=== PATIENT | female | born 1965 | race Caucasian/White ===

== ENCOUNTER 2017-01-14 08:47 | Observation (INO) | payer OTHER ==
[2017-01-14] MEDS ORDERED: Nitroglycerin TAB 0.4 MG* 0.4 MG TAB SL ONE (09:48)
[2017-01-14] MEDS ORDERED: Aspirin Low Dose CHEW TAB* 81 MG PO ONE (09:48)
[2017-01-14] MEDS ORDERED: NS 0.9% 1000 ML* 1,000 ML IV SCH (10:00)
[2017-01-14 10:29] LABS: Hematocrit 43 % (35-47); Hemoglobin 14.3 g/dl (12.0-16.0); Mean Corpuscular HGB Conc 34 g/dl (31-36); Mean Corpuscular Hemoglobin 29 pg (27-31); Mean Corpuscular Volume 88 fL (80-97); Mean Platelet Volume 8 um3 (7.4-10.4); Red Blood Count 4.87 10^6/ul (4.0-5.4); Red Cell Distribution Width 15 % (10.5-15); White Blood Count 6.5 10^3/ul (3.5-10.8)
--- NOTE | 2017-01-14 10:35 | RAD ---
INDICATION: Mild dyspnea COMPARISON: None. TECHNIQUE: Single AP portable view of the chest was obtained. FINDINGS: Image quality is compromised due to the relative inferiority of a portable chest x-ray. The heart and mediastinum exhibit normal size and contour. The lungs are grossly clear. There is no evidence of a large pleural effusion. Visualized bones are normal for the patient's age. IMPRESSION: No radiographic evidence for acute cardiopulmonary abnormality on this portable chest x-ray.
[2017-01-14 10:53] LABS: Albumin 4.3 g/dL (3.2-5.2); BUN/Creatinine Ratio 13.3 (8-20); C Reactive Protein 12.36 mg/L (< 5.00); Calcium 9.5 mg/dL (8.6-10.3); EGFR African American 71.6 (>60); EGFR Non-African American 55.7 (>60); Globulin 2.7 g/dL (2-4); Magnesium 2.1 mg/dL (1.9-2.7); Potassium 4.4 mmol/L (3.5-5.0); Total Bilirubin 0.6 mg/dL (0.2-1.0)
[2017-01-14 11:14] LABS: TSH (Thyroid Stimulating Horm) 1.16 mcIU/mL (0.34-5.60)
--- NOTE | 2017-01-14 12:34 | RAD ---
HISTORY: Upper abdominal pain COMPARISONS: CT dated December 06, 2006 TECHNIQUE: Multiple transverse and longitudinal ultrasound images were obtained of the right upper quadrant of the abdomen using grayscale and color Doppler imaging. FINDINGS: LIVER: The liver is diffusely echogenic and coarse in echotexture, with decreased acoustic transmission. The liver measures 23.5 cm in long axis.. There is normal hepatopedal flow of the portal vein on Doppler imaging. BILIARY TREE: There is no intrahepatic or extrahepatic biliary dilatation. The common duct measures 0.3 cm. GALLBLADDER: The gallbladder is well-visualized. There is no cholelithiasis, gallbladder wall thickening, pericholecystic fluid, or sonographic Cavanaugh sign. PANCREAS: The pancreas is obscured by overlying bowel gas. RIGHT KIDNEY: The right kidney is normal in shape, size, contour, and echogenicity. There is no hydronephrosis or nephrolithiasis. The right kidney measures 11.4 x 3.9 x 5.7 cm. AORTA AND IVC: The aorta and IVC are unremarkable. FLUID: There are no pleural effusions. There is no free fluid within the hepatorenal recess. OTHER FINDINGS: None. IMPRESSION: HEPATOMEGALY WITH FATTY INFILTRATION OF THE LIVER.
[2017-01-14] MEDS ORDERED: Dextrose 50% Syringe 50 ML* 25 GM/50 ML SYRINGE IV PUSH PRN (14:22)
[2017-01-14] MEDS ORDERED: Acetaminophen TAB* 325 MG PO PRN (14:26)
[2017-01-14 14:49] LABS: Urine Bacteria 1+ (Absent); Urine Bilirubin Negative (Negative); Urine Glucose 3+(>=500 mg/dL) (Negative); Urine Nitrite Negative (Negative)
[2017-01-14] MEDS ORDERED: Iodixanol* (CONTRAST) 320 MG/ML 100 ML SDV IV ONE (16:08)
--- NOTE | 2017-01-14 16:37 | ED ---
René Barragan Benjamin, scribed for Link Betancur MD on 01/14/17 at 1032 . HPI Chest Pain - HPI Summary HPI Summary: 51yo female c/o sudden onset of intermittent Sob since last week, also intermittent chest pressure since Saturday. Pt states her SOB and CP gets worse with activities, but also occurs at rest sometimes. Pain lasts about 10-15 minutes. Pt also reports epigastric discomfort, but says that is chronic. Pain gained 7lbs over a week. Pt is diabetic and has an enlarged liver. Pt had stress test and cardiac catheter done 2 yrs ago. - History of Current Complaint Chief Complaint: EDChestPainROMI Time Seen by Provider: 01/14/17 09:07 Hx Obtained From: Patient Hx Last Menstrual Period: menopause at age 42 Onset/Duration: Started Days Ago - 2 days ago, Still Present Timing: Intermittent, Lasting Minutes - 10-15 min Initial Severity: Moderate Current Severity: Mild Pain Intensity: 1 Pain Scale Used: 0-10 Numeric Chest Pain Location: Diffuse Chest Pain Radiates: Yes Chest Pain Radiates To:: Shoulder - shoulder blades Character: Pressure/Squeezing, Tightness Aggravating Factor(s): Exertion Alleviating Factor(s): Nothing Associated Signs and Symptoms: Positive: Shortness of Breath - Allergy/Home Medications Allergies/Adverse Reactions: Allergies Allergy/AdvReac Type Severity Reaction Status Date / Time Penicillins Allergy Intermediate Hives Verified 01/14/17 08:49 Home Medications: Home Medications Ergocalciferol [Vitamin D2] 4,000 unit PO DAILY 01/14/17 [History Confirmed ] Fenofibrate(NF) [Tricor(NF)] 145 mg PO DAILY 01/14/17 [History Confirmed ] Gabapentin TAB(NF) [Neurontin 600 mg TAB(NF)] 600 mg PO TID MDD 600 mg 01/14/17 [History Confirmed 01/14/17] Insulin GLARGINE(*) [Lantus(*)] 65 units SUBCUT BID 01/14/17 [History Confirmed 01/14/17] [id number] Ethyl Esters (NF) [Lovaza (NF)] 2 gm PO DAILY 01/14/17 [History Confirmed 01/14/17] Rosuvastatin (NF) [Crestor (NF)] 20 mg PO QPM 01/14/17 [History Confirmed ] PMH/Surg Hx/FS Hx/Imm Hx Endocrine/Hematology History: Reports: Hx Diabetes Cardiovascular History: Reports: Hx Hypertension GI History: Reports: Hx Ulcer - gerd - Surgical History Surgery Procedure, Year, and Place: internal cysts removed from abd. tubal, tonsillectomy. tumors from esophagus - last 06/2105 Infectious Disease History: No Infectious Disease History: Reports: Hx Shingles Denies: History Other Infectious Disease, Traveled Outside the [place] in Last 30 Days - Family History Known Family History: Positive: Cardiac Disease, Hypertension, Diabetes - Social History Alcohol Use: None Substance Use Type: Reports: None Smoking Status (MU): Heavy Every Day Tobacco Smoker Type: Cigarettes Amount Used/How Often: 1/2 ppd Review of Systems Constitutional: Negative Eyes: Negative ENT: Negative Positive: Chest Pain Positive: Shortness Of Breath Gastrointestinal: Negative Genitourinary: Negative Musculoskeletal: Negative Skin: Negative Neurological: Negative Psychological: Normal All Other Systems Reviewed And Are Negative: Yes Physical Exam Triage Information Reviewed: Yes Vital Signs On Initial Exam: Initial Vitals Temp Pulse Resp BP Pulse Ox 97.5 F 105 17 141/79 97 01/14/17 08:55 01/14/17 08:55 01/14/17 08:55 01/14/17 08:55 01/14/17 08:55 Vital Signs Reviewed: Yes Appearance: Positive: Well-Appearing, No Pain Distress, Well-Nourished Skin: Positive: Warm, Skin Color Reflects Adequate Perfusion, Dry Head/Face: Positive: Normal Head/Face Inspection Eyes: Positive: Normal ENT: Positive: Normal ENT inspection, Hearing grossly normal Neck: Positive: Supple, Nontender Respiratory/Lung Sounds: Positive: Clear to Auscultation, Breath Sounds Present Cardiovascular: Positive: RRR, Pulses are Symmetrical in both Upper and Lower Extremities Abdomen Description: Positive: Nontender, Soft Bowel Sounds: Positive: Present Musculoskeletal: Positive: Strength/ROM Intact Neurological: Positive: Sensory/Motor Intact, Alert, Oriented to Person Place, Time Psychiatric: Positive: Affect/Mood Appropriate Diagnostics - Vital Signs Vital Signs Temp Pulse Resp BP Pulse Ox 01/14/17 10:06 110 14 94 01/14/17 10:05 109/60 01/14/17 08:55 97.5 F 105 17 141/79 97 - Laboratory Lab Results: Lab Results 01/14/17 01/14/17 01/14/17 Range/Units 10:00 10:00 10:00 WBC (3.5-10.8) 10^3/ul RBC (4.0-5.4) 10^6/ul Hgb (12.0-16.0) g/dl Hct (35-47) % MCV (80-97) fL MCH (27-31) pg MCHC (31-36) g/dl RDW (10.5-15) % Plt Count (150-450) 10^3/ul MPV (7.4-10.4) um3 Neut % (Auto) (38-83) % Lymph % (Auto) (25-47) % [place] % (Auto) (1-9) % Eos % (Auto) (0-6) % Baso % (Auto) (0-2) % Absolute Neuts (auto) (1.5-7.7) 10^3/ul Absolute Lymphs (auto) (1.0-4.8) 10^3/ul Absolute Monos (auto) (0-0.8) 10^3/ul Absolute Eos (auto) (0-0.6) 10^3/ul Absolute Basos (auto) (0-0.2) 10^3/ul Absolute Nucleated RBC 10^3/ul Nucleated RBC % INR (Anticoag Therapy) 0.87 L (0.89-1.11) APTT 28.4 (26.0-36.3) seconds D-Dimer, Quantitative < 200 (Less Than 230) ng/mL Sodium 137 (133-145) mmol/L Potassium 4.4 (3.5-5.0) mmol/L Chloride 103 (101-111) mmol/L Carbon Dioxide 26 (22-32) mmol/L Anion Gap 8 (2-11) mmol/L BUN 14 (6-24) mg/dL Creatinine 1.05 H (0.51-0.95) mg/dL Est GFR ( Amer) 71.6 (>60) Est GFR (Non-Af Amer) 55.7 (>60) BUN/Creatinine Ratio 13.3 (8-20) Glucose 227 H (70-100) mg/dL Lactic Acid (0.5-2.0) mmol/L Calcium 9.5 (8.6-10.3) mg/dL Magnesium 2.1 (1.9-2.7) mg/dL Total Bilirubin 0.60 (0.2-1.0) mg/dL AST 97 H (13-39) U/L ALT 135 H (7-52) U/L Alkaline Phosphatase 115 H (34-104) U/L Total Creatine Kinase 109 (10-223) U/L CK-MB (CK-2) 1.4 (0.6-6.3) ng/mL Troponin I 0.00 (<0.04) ng/mL C-Reactive Protein 12.36 H (< 5.00) mg/L B-Natriuretic Peptide 15 ( - 100) pg/mL Total Protein 7.0 (6.4-8.9) g/dL Albumin 4.3 (3.2-5.2) g/dL Globulin 2.7 (2-4) g/dL Albumin/Globulin Ratio 1.6 (1-3) Lipase 30 (11.0-82.0) U/L TSH 1.16 (0.34-5.60) mcIU/mL Urine Color Urine Appearance Urine pH (5-9) Ur Specific [place] (1.010-1.030) Urine Protein (Negative) Urine Ketones (Negative) Urine Blood (Negative) Urine Nitrate (Negative) Urine Bilirubin (Negative) Urine Urobilinogen (Negative) Ur Leukocyte Esterase (Negative) Urine WBC (Auto) (Absent) Urine RBC (Auto) (Absent) Ur Squamous Epith Cells (Absent) Urine Bacteria (Absent) Urine Glucose (Negative) 01/14/17 01/14/17 01/14/17 Range/Units 10:00 10:00 13:07 WBC 6.5 (3.5-10.8) 10^3/ul RBC 4.87 (4.0-5.4) 10^6/ul Hgb 14.3 (12.0-16.0) g/dl Hct 43 (35-47) % MCV 88 (80-97) fL MCH 29 (27-31) pg MCHC 34 (31-36) g/dl RDW 15 (10.5-15) % Plt Count 211 (150-450) 10^3/ul MPV 8 (7.4-10.4) um3 Neut % (Auto) 55.1 (38-83) % Lymph % (Auto) 33.5 (25-47) % [place] % (Auto) 7.8 (1-9) % Eos % (Auto) 2.6 (0-6) % Baso % (Auto) 1.0 (0-2) % Absolute Neuts (auto) 3.6 (1.5-7.7) 10^3/ul Absolute Lymphs (auto) 2.2 (1.0-4.8) 10^3/ul Absolute Monos (auto) 0.5 (0-0.8) 10^3/ul Absolute Eos (auto) 0.2 (0-0.6) 10^3/ul Absolute Basos (auto) 0.1 (0-0.2) 10^3/ul Absolute Nucleated RBC 0 10^3/ul Nucleated RBC % 0.1 INR (Anticoag Therapy) (0.89-1.11) APTT (26.0-36.3) seconds D-Dimer, Quantitative (Less Than 230) ng/mL Sodium (133-145) mmol/L Potassium (3.5-5.0) mmol/L Chloride (101-111) mmol/L Carbon Dioxide (22-32) mmol/L Anion Gap (2-11) mmol/L BUN (6-24) mg/dL Creatinine (0.51-0.95) mg/dL Est GFR ( Amer) (>60) Est GFR (Non-Af Amer) (>60) BUN/Creatinine Ratio (8-20) Glucose (70-100) mg/dL Lactic Acid 2.1 H* (0.5-2.0) mmol/L Calcium (8.6-10.3) mg/dL Magnesium (1.9-2.7) mg/dL Total Bilirubin (0.2-1.0) mg/dL AST (13-39) U/L ALT (7-52) U/L Alkaline Phosphatase (34-104) U/L Total Creatine Kinase (10-223) U/L CK-MB (CK-2) (0.6-6.3) ng/mL Troponin I (<0.04) ng/mL C-Reactive Protein (< 5.00) mg/L B-Natriuretic Peptide ( - 100) pg/mL Total Protein (6.4-8.9) g/dL Albumin (3.2-5.2) g/dL Globulin (2-4) g/dL Albumin/Globulin Ratio (1-3) Lipase (11.0-82.0) U/L TSH (0.34-5.60) mcIU/mL Urine Color Katharine Urine Appearance Cloudy Urine pH 6.0 (5-9) Ur Specific [place] 1.033 H (1.010-1.030) Urine Protein 1+(30 mg/dl) H (Negative) Urine Ketones Trace H (Negative) Urine Blood Negative (Negative) Urine Nitrate Negative (Negative) Urine Bilirubin Negative (Negative) Urine Urobilinogen Negative (Negative) Ur Leukocyte Esterase Negative (Negative) Urine WBC (Auto) Absent (Absent) Urine RBC (Auto) Absent (Absent) Ur Squamous Epith Cells Present H (Absent) Urine Bacteria 1+ H (Absent) Urine Glucose 3+(>=500 mg/dl) H (Negative) Result Diagrams: 01/14/17 10:00 01/14/17 10:00 Lab Statement: Any lab studies that have been ordered have been reviewed, and results considered in the medical decision making process. - Radiology CXR Xray Interpretation: No Acute Changes Radiology Interpretation Completed By: Radiologist - ED physician has reviewed this radiology report and agrees. - EKG 1017. Cardiac Rate: NL - 89bpm EKG Rhythm: Sinus Rhythm ST Segment: Normal Ectopy: None - Additional Comments Diagnostic Additional Comments: GALL BLADDER US IMPRESSION: HEPATOMEGALY WITH FATTY INFILTRATION OF THE LIVER. ED physician has reviewed this radiology report and agrees. Chest Pain Course/Dx - Course Course Of Treatment: Reviewed pts medication and allergy lists. High Blood pressure noted. ADMIT HOSPITALIST. NO CRITICAL CARE TIME - Diagnoses Provider Diagnoses: Chest pain, Dyspnea, Upper abdominal pain Discharge - Discharge Plan Condition: Stable Disposition: ADMITTED TO [facility] documentation as recorded by the René coleman Benjamin accurately reflects the service I personally performed and the decisions made by me, Link Betancur MD.
--- NOTE | 2017-01-14 17:10 | RAD ---
INDICATION: Abdominal pain and distention COMPARISON: CT December 06, 2006 TECHNIQUE: Axial source images were obtained from the hemidiaphragms to the symphysis pubis following administration of oral and intravenous contrast. 100 mL Visipaque 320 was utilized. Coronal and sagittal reconstructed images were acquired. Lung bases: The lung bases are clear. Liver: The liver is enlarged with findings of hepatic steatosis. There are no masses. There is no ductal dilatation. Gallbladder: There are no calcified gallstones. There is no evidence of wall thickening or pericholecystic fluid. Spleen: The spleen is normal in size. There are no masses. Pancreas: There is no focal pancreatic mass or ductal dilatation. Adrenal glands: There is no evidence of adrenal mass. Kidneys: The kidneys are normal in size and position. There are prompt nephrograms and there is prompt excretion bilaterally. There are no renal parenchymal masses. There is no evidence of nephrolithiasis. Adenopathy: There is no evidence of adenopathy by size criteria. Fluid collections: There are no free or localized fluid collections. Vessels:There are no significant atherosclerotic changes involving the aorta. There is no focal aneurysm. The iliac vessels are normal in caliber. The IVC appears normal. GI tract: There are no acute CT bowel findings. There is no obstruction. The stomach and small bowel appear normal. The lower GI tract is normal. The cecum, ileocecal valve, and terminal ileum appear normal. The appendix is visualized and appear normal. Pelvic organs: The uterus and adnexa appear normal Bladder: There are no bladder masses. Abdominal and pelvic soft tissues: The extraperitoneal abdominal and pelvic soft tissues appear normal.. Osseous structures: There are no acute osseous findings. Other: None IMPRESSION: HEPATOMEGALY WITH HEPATIC STEATOSIS, OTHERWISE NEGATIVE.
[2017-01-14] MEDS: Insulin LISPRO* 1 UNITS UNIT SUBCUT SCH (17:45)
[2017-01-14] MEDS: Gabapentin CAP(*) 300 MG PO SCH (20:45)
[2017-01-14] MEDS: Insulin GLARGINE(*) 1 UNITS UNIT SUBCUT SCH (20:47)
[2017-01-14] MEDS ORDERED: DULoxetine DR CAP* 60 MG CAP.DR PO SCH (21:00)
[2017-01-14] MEDS: Heparin VIAL(*) 5000 UNITS/ML VIAL (FIVE THOUSAND) SUBCUT SCH (22:20)
--- NOTE | 2017-01-14 22:38 | HP ---
CC: Dr. Robles* [facility] MEDICINE HISTORY AND PHYSICAL: DATE OF ADMISSION: 01/14/17 PRIMARY CARE PHYSICIAN: Dr. Robles. ATTENDING PHYSICIAN: Cleve Bernabe MD* (dictation provided by Eileen Otero NP). CHIEF COMPLAINT: Shortness of breath, abdominal distention, and epigastric discomfort. HISTORY OF PRESENT ILLNESS: Ms. 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 She presents to the hospital today with concern for worsening dyspnea on exertion. She states that her symptoms began approximately 2 weeks ago. She began to notice that she was more short of breath with walking upstairs and exerting herself. However, over this 2-week period, her activity level has diminished and she continues to have worsening shortness of breath. Now she states that she is short of breath with simply walking across the room or even rolling over in bed. She also reports feeling fullness and distention in her abdomen with some discomfort in her epigastric area. She states she has been eating and drinking normally. She has had no diarrhea. She has had no constipation. She feels that perhaps she has gained about 7 pounds over the past week and has actually had to go buy a new pair of pants because of this. Today, she was driving her car and was short of breath just with that activity and therefore ,decided to come to the emergency room for evaluation. Of note, Ms. Ocampo states that she has had 2 large cystic tumors removed in the past from her abdomen, one cyst was attached to her lower spine and was described as the size of a football. She also had another cyst removed from her bowel. The first one was done at [facility] and the second was done at [facility] in [place]. She states that her symptoms today seem similar to symptoms that she had, which led to discovery of these cysts previously. In the emergency room, Ms. Ocampo had a troponin which was 0. She had a lactic acid, which was 2.1. She had an elevated AST of 97, ALT 135, alk phos 115. Her CRP is 12.36. Her EKG showed no evidence of ischemia. Her chest x- ray shows no evidence of infiltrate. Her D-dimer is less than 200. PAST MEDICAL HISTORY: 1. Obstructive sleep apnea, on CPAP. 2. Depression. 3. Diabetes, insulin dependent. 4. Hypertension. 5. Hyperlipidemia. 6. History of 2 large cystic tumors removed from the abdomen, last one approximately 10 years ago. 7. 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 MEDICATIONS: 1. Invokana 300 mg p.o. daily. 2. Ergocalciferol 4000 units p.o. daily. 3. Fenofibrate 145 mg p.o. daily. 4. Lantus insulin 65 units subcutaneously b.i.d. 5. Mobile-3 fatty acid 2 g p.o. daily. 6. Rosuvastatin 20 mg p.o. q.p.m. 7. Metformin 850 mg p.o. b.i.d. 8. Duloxetine 60 mg p.o. daily. 9. Gabapentin 600 mg p.o. t.i.d. 10. Losartan 25 mg p.o. daily. 11. Omeprazole 40 mg p.o. daily. ALLERGIES: To PENICILLIN. FAMILY HISTORY: The patient reports her mother has AFib and is alive. Father has a heart problem that she is not sure about. She states that her paternal grandfather related to heart attack at age 70. SOCIAL HISTORY: The patient has a 30-year smoking history, but quit 2 months ago. She denies any alcohol or drug use. She lives with her , who is her healthcare proxy. REVIEW OF SYSTEMS: A 14-point review of systems was completed with Ms. Ocampo and all those not mentioned above were negative. PHYSICAL EXAMINATION GENERAL: Ms. Ocampo is sitting up in the bed. She is in no acute distress. VITAL SIGNS: Temperature 97.5, pulse rate 80, respiratory rate 17, O2 saturation 96% on room air, and blood pressure 113/64. LUNGS: Clear to auscultation bilaterally with no accessory muscle use and good aeration. HEART: S1 and S2. No murmur, rub, or gallop and regular. ABDOMEN: The patient has diffuse tenderness throughout her abdomen with worsening tenderness to palpation in the epigastric area. She feels full, distended. There is no discrete hepatosplenomegaly noted. EXTREMITIES: No cyanosis or edema. NEUROLOGIC: She is alert, she is oriented x3. She moves all extremities equally. There is no facial asymmetry or focal weakness. Extraocular movements are intact. SKIN: Intact. LABORATORY DATA/DIAGNOSTIC STUDIES: WBC 6.5, hemoglobin 14.3, hematocrit 43, platelet count 211,000. INR 0.87. D-dimer less than 200. Sodium 137, potassium 4.4, chloride 103, serum bicarbonate 26, BUN 14, creatinine 1.05, glucose 227, lactic acid 2.1. AST 97, ALT 135, alk phos 115. CRP 12.36. Troponin 0.00. Gallbladder ultrasound shows no evidence of cholecystitis. Chest x-ray shows no acute cardiopulmonary process. I should note that the gallbladder ultrasound did show hepatomegaly with fatty liver and EKG shows sinus rhythm with the heart rate of 90 and no evidence of ischemia. ASSESSMENT AND PLAN: Ms. Ocampo is a 51-year-old female with a past medical history of diabetes, hypertension, hyperlipidemia, and history of 2 large cystic tumors to her abdomen who presents to the hospital today with concern for worsening dyspnea on exertion, now with epigastric pain and abdominal distention. Our plans are for observation in the hospital for the followin. Dyspnea on exertion: Given the patient's history of large cystic tumors and the related symptoms with epigastric pain and distention, I question whether or not her shortness of breath is driven by abdominal fullness. Plan will be for a CT of the abdomen and pelvis to rule out new cystic tumor. However, she does have diabetes, hypertension, hyperlipidemia, and certainly there is high risk for acute coronary syndrome. Plan for for repeat troponins and telemetry monitoring. At this time, I do not plan to order stress testing as I am going to await the results of the CT scan. I will note that the patient had a cardiac catheterization in [place] 2 years ago, which she reports showed no significant coronary artery disease. 2. Type 2 diabetes: The patient's blood glucose is actually low here today at 75. She will be given some juice and I plan to decrease her home Lantus from 65 to 50 units b.i.d. and also to hold Invokana and metformin. She will have lispro sliding scale with meals. For now, she will be n.p.o. while she awaits her CT scan, but then will go and have a consistent carbohydrate diet. 3. Hyperlipidemia: Continue rosuvastatin. 4. Obstructive sleep apnea: The patient may use home CPAP. 5. Code status: Full code. 6. Disposition: To telemetry floor. TIME SPENT: Approximately 60 minutes were spent on the admission of this patient, more than half the time spent with the patient at the bedside reviewing the events leading up to this hospitalization, performing the physical examination, and reviewing my plan of care. EILEEN OTERO NP [id number]/CPS #: [id number] RAY
[2017-01-15] MEDS: Heparin VIAL(*) 5000 UNITS/ML VIAL (FIVE THOUSAND) SUBCUT SCH (05:32)
[2017-01-15 06:07] LABS: Albumin 3.7 g/dL (3.2-5.2); BUN/Creatinine Ratio 11.5 (8-20); Calcium 9.2 mg/dL (8.6-10.3); EGFR African American 72.4 (>60); EGFR Non-African American 56.3 (>60); Globulin 2.6 g/dL (2-4); Total Bilirubin 0.5 mg/dL (0.2-1.0); Total Protein 6.3 g/dL (6.4-8.9)
[2017-01-15] MEDS ORDERED: Losartan TAB* 25 MG PO SCH (09:00)
[2017-01-15] MEDS ORDERED: Omeprazole CAP* 20 MG PO SCH (09:00)
[2017-01-15] MEDS: Insulin LISPRO* 1 UNITS UNIT SUBCUT SCH ×2 (09:07→14:16)
[2017-01-15] MEDS: Gabapentin CAP(*) 300 MG PO SCH ×2 (10:09→14:49)
[2017-01-15] MEDS: Insulin GLARGINE(*) 1 UNITS UNIT SUBCUT SCH (10:10)
[2017-01-15] MEDS ORDERED: Aminophylline IV* 25 MG/ML 10 ML VIAL ONE (12:02)
[2017-01-15] MEDS ORDERED: Regadenoson* 0.4 MG/5 ML SYRINGE ONE (12:02)
--- NOTE | 2017-01-15 13:54 | RAD ---
Edited for charges. Indication: Dyspnea on exertion. Myocardial perfusion scan was performed utilizing 1 day protocol. Rest myocardial perfusion was performed after intravenous injection of 10.2 mCi of technetium 99 and tetrofosmin. Pharmacological stress was performed after intravenous injection of 25.6 mCi of technetium 99 and tetrofosmin. There is homogeneous distribution of the radiotracer throughout the left ventricle. There is no evidence of fixed or reversible perfusion defect identified. The ejection fraction at stress is 65%. Evaluation of wall motion demonstrates no focal wall motion abnormality. IMPRESSION: No evidence of fixed or reversible perfusion defect is identified. ASSESSMENT: Low risk Based on imaging criteria from ACC/AHA 2002 Guideline Update for the Management of Patients With Chronic Stable Angina Table 23. Noninvasive Risk Stratification. Reference. MTDD
[2017-01-15 15:43] VITALS: BP 103/48
--- NOTE | 2017-01-16 02:43 | DS ---
CC: Dr. Robles DISCHARGE SUMMARY: DATE OF ADMISSION: DATE OF DISCHARGE: 01/15/17 HISTORY: This 51-year-old woman presented with shortness of breath, epigastric discomfort and abdominal distention. She states within the last 1 to 2 weeks, she has had more dyspnea and gained about 7 pounds. She felt her symptoms were progressing,and she came to the emergency room for evaluation. I note she has a history of 2 cystic tumors removed from the abdomen more than 10 years ago as well as 2 small tumors in her esophagus that were benign. She has a history of diabetes, hyperlipidemia, and GERD. She was admitted to a telemetry unit. She had 3 troponin levels, all of which were normal. She had a treadmill stress test, which showed she had an ejection fraction at stress of 65%. There was no evidence of fixed or reversible perfusion defect. On the day of discharge, her symptoms were much improved. I am not sure what it accounts for the improvement as well as the initial symptoms themselves. FINAL DIAGNOSES: 1. Abdominal discomfort, improved. 2. Diabetes. 3. Obesity. 4. Hyperlipidemia. 5. History of tobacco use. 6. Remote history of abdominal tumors. 7. Adenoid cysts. DISCHARGE MEDICATIONS: 1. Metformin 850 mg b.i.d. 2. Omeprazole 40 mg daily. 3. Losartan 25 mg daily. 4. Canagliflozin 300 mg daily. 5. Duloxetine 60 mg daily. 6. Glargine insulin 65 units subcu twice daily. 7. Ergocalciferol 4000 units daily. 8. Gabapentin 600 mg t.i.d. 9. Fenofibrate 145 mg daily. 10. [place] 3 fatty acid 2 g daily. 11. Rosuvastatin 20 mg at bedtime. [id number]/[facility] #: [id number] [facility]
== END 2017-01-15 17:00 | disposition home or self-care (01) ==
LOC: ED 08:47 → MEDTELE 14:07
PROVIDERS: ADMIT Internal Medicine; ATTEND Internal Medicine
DX: R06.09 Other forms of dyspnea (principal); R07.89 Other chest pain; R10.13 Epigastric pain; R14.0 Abdominal distension (gaseous); R16.0 Hepatomegaly, not elsewhere classified; K76.0 Fatty (change of) liver, not elsewhere classified; E11.9 Type 2 diabetes mellitus without complications; Z79.84 Long term (current) use of oral hypoglycemic drugs; G47.33 Obstructive sleep apnea (adult) (pediatric); I10 Essential (primary) hypertension; Z87.891 Personal history of nicotine dependence; Z79.899 Other long term (current) drug therapy; E78.5 Hyperlipidemia, unspecified; Z79.4 Long term (current) use of insulin
CPT/HCPCS: 36415; 71010; 74177; 76705; 78452; 80053; 81003; 81015; 82550; 82553; 83605; 83690; 83735; 83880; 84443; 84484; 85025; 85379; 85610; 85730; 86140; 87086; 93005; 93017; 96360; 99284; A9270-GY; A9502; G0378; J0280; J1644; J2785; Q9967

== ENCOUNTER 2019-05-07 09:40 | Emergency (ER) | payer OTHER ==
--- NOTE | 2019-05-07 09:51 | ED ---
Complex/Multi-Sys Presentation - HPI Summary HPI Summary: Patient is a 54 y/o F presenting to the ED for a chief complaint of chest pain that radiates to the upper back and began the morning of 05/07/19. Patient reports malaise, diaphoresis, shortness of breath, and nausea. Patient denies cough. PMHx is significant for DM, HTN, HLD, GERD, and anemia. About one month ago, patient had bloodwork that showed anemia. Patient has an upcoming bariatric surgery. Patient was a smoker for 30 years, quitting 3 years ago. - History Of Current Complaint Time Seen by Provider: 05/07/19 09:47 Hx Obtained From: Patient Onset/Duration: Sudden Onset, Still Present Timing: Constant Severity Currently: Moderate Severity Initially: Moderate Associated Signs And Symptoms: Positive: SOB, Chest Pain, Nausea, Back Pain - Upper, Diaphoresis. Negative: Cough - Allergies/Home Medications Allergies/Adverse Reactions: Allergies Allergy/AdvReac Type Severity Reaction Status Date / Time Penicillins Allergy Hives Verified 05/07/19 10:16 Home Medications: Home Medications Albuterol HFA INHALER* [Ventolin HFA Inhaler*] 2 puff INH Q4H PRN 05/07/19 [ History Confirmed 05/07/19] Clindamycin 1% TOPICAL(NF) [Cleocin-T 1% TOPICAL(NF)] 1 applic TOPICAL DAILY [History Confirmed 05/07/19] Cyclobenzaprine TAB* [Flexeril 10 MG TAB*] 10 mg PO BEDTIME 05/07/19 [History Confirmed 05/07/19] Dexlansoprazole (NF) [Dexilant (NF)] 30 mg PO DAILY 05/07/19 [History Confirmed 05/07/19] Diclofenac Sodium EC TAB* [Voltaren EC TAB*] 75 mg PO BID 05/07/19 [History Confirmed 05/07/19] Dulaglutide (NF) [Trulicity (NF)] 1.5 mg SUBCUT WEEKLY 05/07/19 [History Confirmed 05/07/19] Empaglifozin (NF) [Jardiance] 25 mg PO DAILY 05/07/19 [History Confirmed ] Gabapentin CAP(*) [Neurontin 300 CAP(*)] 300 mg PO BEDTIME 05/07/19 [History Confirmed 05/07/19] Ketoconazole [Nizoral A-D] 1 applic TOPICAL .3X/WEEK 05/07/19 [History Confirmed 05/07/19] Triamcinolone 0.1% CREAM (NF) [Kenalog 0.1% Cream (NF)] 1 applic TOPICAL DAILY 05/07/19 [History Confirmed 05/07/19] buPROPion SR TAB* [Wellbutrin SR TAB*] 150 mg PO BID 05/07/19 [History Confirmed 05/07/19] PMH/Surg Hx/FS Hx/Imm Hx Previously Healthy: Yes Endocrine/Hematology History: Reports: Hx Diabetes, Hx Anemia Cardiovascular History: Reports: Hx Angina, Hx Hypercholesterolemia, Hx Hypertension Denies: Hx Myocardial Infarction Respiratory History: Reports: Hx Asthma Denies: Hx Chronic Obstructive Pulmonary Disease (COPD) GI History: Reports: Hx Gastroesophageal Reflux Disease, Hx Ulcer - gerd Sensory History: Reports: Hx Contacts or Glasses Denies: Hx Legally Blind, Hx Deafness, Hx Hearing Aid Opthamlomology History: Reports: Hx Contacts or Glasses Denies: Hx Legally Blind EENT History: Denies: Hx Deafness - Surgical History Surgical History: Yes Surgery Procedure, Year, and Place: 2 cyst removed from her abdomen, and tubual Infectious Disease History: Yes Infectious Disease History: Reports: Hx Shingles Denies: History Other Infectious Disease - Family History Known Family History: Positive: Cardiac Disease, Hypertension, Diabetes - Social History Occupation: Employed Full-time Lives: With Family Alcohol Use: None Hx Substance Use: No Substance Use Type: Reports: None Hx Tobacco Use: Yes Smoking Status (MU): Former Smoker Type: Cigarettes Amount Used/How Often: 1/2 ppd Review of Systems Positive: Skin Diaphoresis, Other - Positive malaise Positive: Chest Pain Positive: Shortness Of Breath. Negative: Cough Positive: Nausea Positive: Myalgia - Upper back that radiates from the chest All Other Systems Reviewed And Are Negative: Yes Physical Exam - Summary Physical Exam Summary: Appearance: The patient is well-nourished in no acute distress and in no acute pain. Skin: The skin is warm and dry, and skin color reflects adequate perfusion. HEENT: The head is normocephalic and atraumatic. The pupils are equal and reactive. The conjunctivae are clear and without drainage. Nares are patent and without drainage. Mouth reveals moist mucous membranes, and the throat is without erythema and exudate. The external ears are intact. The ear canals are patent and without drainage. The tympanic membranes are intact. Neck: The neck is supple with full range of motion and non-tender. There are no carotid bruits. There is no neck vein distension. Respiratory: Chest is non-tender. Lungs are clear to auscultation and breath sounds are symmetrical and equal. Cardiovascular: Heart is regular rate and rhythm. There is no murmur or rub auscultated. There is no peripheral edema and pulses are symmetrical and equal. Abdomen: The abdomen is soft and non-tender. There are normal bowel sounds heard in all four quadrants and there is no organomegaly palpated. Musculoskeletal: There is no back tenderness noted. Extremities are non-tender with full range of motion. There is good capillary refill. There is no peripheral edema or calf tenderness elicited. Neurological: Patient is alert and oriented to person, place and time. The patient has symmetrical motor strength in all four extremities. Cranial nerves are grossly intact. Deep tendon reflexes are symmetrical and equal in all four extremities. Psychiatric: The patient has an appropriate affect and does not exhibit any anxiety or depression. Triage Information Reviewed: Yes Vital Signs Reviewed: Yes Procedures - Sedation Patient Received Moderate/Deep Sedation with Procedure: No Diagnostics - Laboratory Result Diagrams: 05/07/19 10:04 05/07/19 10:04 Lab Statement: Any lab studies that have been ordered have been reviewed, and results considered in the medical decision making process. - Radiology Chest X-ray Radiology Interpretation Completed By: Radiologist Summary of Radiographic Findings: Chest X-ray IMPRESSION: No radiographic evidence of acute cardiopulmonary disease. Reviewed by Dr. Betancur. - CT Chest/Thorax CTA CT Interpretation Completed By: Radiologist Summary of CT Findings: Chest/Thorax CTA IMPRESSION: No pulmonary embolus is noted. No evidence of aortic dissection is noted. Hepatic steatosis is noted. Dependent changes are noted in the lung bases. Reviewed by Dr. Betancur. - Ultrasound Gallbladder US Ultrasound Interpretation Completed By: Radiologist Summary of Ultrasound Findings: Gallbladder US IMPRESSION: 1. NORMAL EXAMINATION OF THE GALLBLADDER. 2. HEPATOMEGALY AND HEPATIC STEATOSIS. Reviewed by Dr. Betancur. - EKG 09:44 Cardiac Rate: Tachycardia - 103 BPM EKG Rhythm: Sinus Tachycardia ST Segment: Normal Ectopy: None Summary of EKG Findings: EKG at 09:44 shows sinus tachycardia with 103 BPM, normal ST, no ectopy, no STEMI. Reviewed and interpreted by Dr. Betancur. Complex Multi-Symp Course/Dx Course Of Treatment: Ms. Ocampo's symptoms on presentation were quite vague. She was kept on a monitor while labs including a delayed troponin were obtained. Flu swab was negative. A d-dimer was negative however she did unexpectedly drop her pulse ox while here therefore CTA was obtained. CT was negative and she had no further episodes of drop her pulse ox. I recommended follow-up with her PCP anaerobic anything dangerous is happening at this point. - Diagnoses Provider Diagnoses: Chest pain Discharge ED - Sign-Out/Discharge Documenting (check all that apply): Patient Departure - Discharge - Discharge Plan Condition: Stable Disposition: HOME Patient Education Materials: Chest Pain (ED) Referrals: Caty Murphy MD [Primary Care Provider] - Additional Instructions: RETURN TO THE EMERGENCY DEPARTMENT FOR CHANGING OR WORSENING SYMPTOMS. Follow up with your primary care physician in 2-3 days. - Billing Disposition and Condition Condition: STABLE Disposition: Home - Attestation Statements Document Initiated by Carlibe: Yes Documenting Scribe: Poonam Hough Provider For Whom Carlibjayesh is Documenting (Include Credential): Uriel Betancur MD Scribe Attestation: I, Poonam Hough, scribed for Uriel Betancur MD on 05/07/19 at 1731. Scribe Documentation Reviewed: Yes Provider Attestation: The documentation as recorded by the Poonam coleman accurately reflects the service I personally performed and the decisions made by me, Uriel Betancur MD Status of Scribe Document: Viewed
[2019-05-07 10:20] LABS: Hematocrit 35 % (35-47); Mean Corpuscular HGB Conc 32 g/dL (31-36); Mean Corpuscular Hemoglobin 23 pg (27-31); Mean Corpuscular Volume 73 fL (80-97); Mean Platelet Volume 7.9 fL (7.4-10.4); Platelet Count 286 10^3/uL (150-450); Red Blood Count 4.78 10^6 /uL (3.70-4.87); Red Cell Distribution Width 22 % (10-15); White Blood Count 6.4 10^3/uL (3.5-10.8)
[2019-05-07 10:29] LABS: INR 1.06 (0.82-1.09)
--- OUTSIDE RECORDS SUMMARY | 2019-05-07 10:31 | XMS REPORT | Summary of Care ---
:1965 Author Organization [facility] Address [address] [place] [address] Care Team Providers Name Role Phone Caty Murphy Primary Care Provider Reason for Visit Reason Comments Pre-op Exam bariatric surgery pre-op Imm/Inj Flu vaccine administered today Encounter Details Date Type Department Care Team Description 04/08/2019 Office Visit [facility] Caty Murphy MD Preop examination (Primary Dx); Medicine [address] [place] [address] RD Flu vaccine need; [address] [place] [address] Type 2 diabetes mellitus with diabetic polyneuropathy, with long-term current use of insulin (HCC); [place] [address] EM on CPAP; [phone] PEREZ (nonalcoholic steatohepatitis); Iron deficiency anemia, unspecified iron deficiency anemia type Allergies Active Allergy Reactions Severity Noted Date Comments Rosuvastatin Calcium Musculoskeletal 11/19/2018 Aches Penicillins Hives 01/07/2007 documented as of this encounter (statuses as of 04/08/2019) Medications Medication Sig Dispensed Refills Start End Status Date Date triamcinolone APPLY DAILY TO 15 g 1 01/04/20 Active (KENALOG,ARISTOCORT) OUTSIDE OF EARS 18 0.1 % Apply PRN externally Cream losartan (COZAAR) 25 TAKE 1 TABLET BY 90 Tab 3 06/12/19 Active MG Oral MOUTH DAILY 19 TabIndications: Essential hypertension albuterol HFA Take 2 Puffs by 3 Inhaler 3 08/14/19 Active (VENTOLIN) 108 (90 inhalation EVERY 19 Base) MCG/ACT FOUR HOURS Inhalation Aero NEEDED (shortness SolnIndications: of breath). Chronic obstructive pulmonary disease with acute exacerbation (HCC), CALVILLO (dyspnea on exertion) [place] & Syringes 1 Each by Does 200 Each 5 10/18/19 Active Does not apply Misc not apply route 19 TWICE DAILY. BD PEN UF SHORT 31G 08/07 Omeprazole 40 MG Take 1 Cap by 90 Cap 3 11/06/19 Active Oral CAPSULE DELAYED mouth DAILY. 19 RELEASE Dexlansoprazole 30 Take 30 mg by 90 Cap 3 11/06/19 Active MG Oral CAPSULE mouth DAILY. 19 DELAYED RELEASE JARDIANCE 25 MG Oral TAKE 1 TABLET BY 90 Tab 3 11/06/19 Active Tab MOUTH DAILY . 19 EQUIVALENT TO EMPAGLIFLOZIN cyclobenzaprine Take 1 Tab by 90 Tab 3 11/13/19 Active (FLEXERIL) 10 MG mouth EVERY 19 Oral Tab BEDTIME. diclofenac Take 1 Tab by 180 Tab 1 11/20/19 Active (VOLTAREN) 75 MG mouth TWICE 19 Oral Tab DAILY. ECIndications: Chronic midline low back pain without sciatica Dulaglutide Inject 1.5 mg 6 mL 3 11/22/19 Active (TRULICITY) 1.5 beneath the skin 19 MG/0.5ML EVERY 7 DAYS. Subcutaneous Solution Pen-injector ketoconazole 120 Appl by 120 mL 3 12/11/19 Active (NIZORAL) 2 % Apply Topical route 19 externally THREE TIMES PER ShampooIndications: WEEK. Use as a Seborrheic shampoo, leave on dermatitis for 5 min then wash off CLINDAMYCIN 1 Appl by Topical 60 mL 3 12/11/19 Active PHOSPHATE,TOPICAL, 1 route DAILY. 19 % Apply externally Apply to scalp LotionIndications: sores once daily Folliculitis and until resolved perifolliculitis LANTUS SOLOSTAR 100 INJECT 120 mL 1 01/20/20 Active UNIT/ML Subcutaneous SUBCUTANEOUSLY 65 19 Solution UNITS TWO TIMES Pen-injector DAILY metFORMIN TAKE 1 TABLET BY 180 Tab 1 03/26/19 Active (GLUCOPHAGE) 850 MG MOUTH TWICE A 20 Oral Tab DAY buPROPion TAKE 1 TABLET BY 180 Tab 1 03/26/19 Active (WELLBUTRIN SR) 150 MOUTH TWICE A 20 MG Oral TABLET SR 12 DAY HRIndications: Depression with anxiety gabapentin TAKE 1 CAPSULE BY 90 Cap 1 03/26/19 Active (NEURONTIN) 300 MG MOUTH EVERY 20 Oral CapIndications: NIGHT AT BEDTIME Type 2 diabetes . TAKE WITH 600 mellitus with MG TABLET TO diabetic EQUAL 900MG AT polyneuropathy, with BEDTIME. long-term current use of insulin (HCC) duloxetine TAKE 1 CAPSULE BY 90 Cap 1 03/26/19 Active (CYMBALTA) 60 MG MOUTH DAILY 20 Oral CAPSULE ENTERIC COATED PARTICLES Gabapentin 600 MG TAKE 1 TABLET BY 270 Tab 1 03/26/19 Active Oral TabIndications: MOUTH 3 TIMES 20 Type 2 diabetes DAILY mellitus with diabetic polyneuropathy, with long-term current use of insulin (HCC) nitroglycerin Place 1 Tab under 25 Tab 12 09/22/19 Discontinued (NITROSTAT) 0.4 MG tongue EVERY FIVE 15 020 (Therapy Sublingual SL MINUTES NEEDED Completed) TabIndications: for chest pain. Chest pain clotrimazole eliazar Take 10 mg by 70 Tab 0 07/22/19 Discontinued (MYCELEX) 10 MG mouth FIVE TIMES 19 020 (Therapy Mouth/Throat Eliazar DAILY. Completed) dicyclomine (BENTYL) Take 1 Tab by 90 Tab 1 07/25/19 Discontinued 20 MG Oral Tab mouth THREE TIMES 19 020 (Therapy DAILY. Completed) documented as of this encounter (statuses as of 04/08/2019) Active Problems Problem Noted Date Systemic involvement of connective tissue 05/16/2018 Chronic obstructive pulmonary disease with acute exacerbation 05/16/2018 Morbid obesity due to excess calories 05/16/2018 Dysphagia 03/11/2018 Depression with anxiety 05/22/2017 Nuclear sclerotic cataract of both eyes 05/07/2017 Essential hypertension 01/24/2017 Gastroesophageal reflux disease without esophagitis 01/24/2017 Overview: EGD 05/2016 showed old healed esophageal scar s/p distal esophagus submucosal nodule removal 06/2015, biopsy positive for granular cell tumor. repeat EGD 1 year. [place] [facility] [place] on CPAP 01/24/2017 PEREZ (nonalcoholic steatohepatitis) 01/24/2017 Right lateral epicondylitis 08/29/2016 Bilateral carpal tunnel syndrome 08/29/2016 Diabetic polyneuropathy associated with type 2 diabetes mellitus 07/06/2016 Type 2 diabetes mellitus with diabetic polyneuropathy, with long-term 2016 current use of insulin Delayed gastric emptying 06/19/2016 Disorder of refraction and accommodation 05/01/2016 Bilateral dry eyes 05/01/2016 Microalbuminuria 09/06/2015 Submucosal nodules 07/27/2015 Recurrent chest pain 08/24/2014 Overview: Negative thallium stress test 08/19/14 Asthma 05/03/2011 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 Vitamin D deficiency 05/13/2009 Dyslipidemia 02/07/2009 Postmenopausal Overview: no period since september Granular cell tumor Overview: Esophageal, x2, s/p resection documented as of this encounter (statuses as of 04/08/2019) Resolved Problems Problem Noted Date Resolved Date Chronic kidney disease, stage 3 03/11/2018 09/10/2018 Pain in both feet 04/04/2015 09/10/2018 Chest pain, ACS rule out 09/02/2014 06/19/2016 Diabetic neuropathy 11/21/2012 05/01/2016 DM (diabetes mellitus) 12/20/2011 05/01/2016 BMI 35.0-35.9,adult 10/23/2011 07/01/2014 Diabetes mellitus 11/09/2010 05/01/2016 Chest pain 02/07/2009 08/24/2014 Other specified disorder of peritoneum 12/19/2006 01/31/2011 Other specified pre-operative examination 12/19/2006 01/31/2011 HTN (hypertension), benign 06/19/2016 DM (diabetes mellitus) 01/31/2011 documented as of this encounter (statuses as of 04/08/2019) Immunizations Name Administration Dates Next Due Influenza (IM) Preservative Free 04/08/2019, 01/01/2018, 01/24/2015, 02/03/2013 Influenza Vaccine Split 01/25/2016 PNEUMOCOCCAL POLYSACCHARIDE VACCINE 03/06/2016 TDAP Vaccine 12/20/2011 documented as of this encounter Social History Tobacco Use Types Packs/Day Years Used Date Former Smoker Cigarettes 1.5 30 Quit: 11/19/2016 Smokeless Tobacco: Never Used Comments: 1.5 pack daily for 30 years, quit on 11/19/2016 Alcohol Use Drinks/Week oz/Week Comments No 0 Standard drinks or equivalent 0.0 Sex Assigned at Date Recorded Not on file Job Start Date Occupation Industry Not on file Not on file Not on file Travel History Travel Start Travel End No recent travel history available. documented as of this encounter Last Filed Vital Signs Vital Sign Reading Time Taken Comments Blood Pressure 122/76 04/08/2019 11:20 AM EST Pulse 100 04/08/2019 11:20 AM EST Temperature - - Respiratory Rate - - Oxygen Saturation 96% 04/08/2019 11:20 AM EST Inhaled Oxygen Concentration - - Weight 96.1 kg (211 lb 12.8 oz) 04/08/2019 11:20 AM EST Height 162.6 cm (5' 4") 04/08/2019 11:20 AM EST Body Mass Index 36.36 04/08/2019 11:20 AM EST documented in this encounter Patient Instructions Patient InstructionsCaty Murphy MD - 04/08/2019 11:20 AM ESTPlan Discontinue diclofenac 1 week before surgery Do not take metformin or insulin the day of surgery and discontinue the insulin thereafter You may take your other diabetes medication with a sip of water Gabapentin/ omeprazole / cymbalta may be continued documented in this encounter Progress Notes Caty Murphy MD - 04/08/2019 11:20 AM EST NAME:Shannan Ocampo 1965: 1965 ENC Date: 04/08/2019 CC: Chief Complaint Patient presents with Pre-op Exam bariatric surgery pre-op Imm/Inj Flu vaccine administered today Shannan Ocampo is a 54-y.o. female Patient here for preop evualuation for upcoming bariatric surgery _ Rou- en-Y Patient is followed for diabetes managed with insulin - / OBSRUCTIVE SLEEP APNEA on CPAP/ HTN / polynueropathy / PEREZ ( mild liver function tests elevaton ) /asthma - rarely active She has not had any cardiac problems in the past- and presently denies and shortness of breath / chest pressure / cough / syncope/ palpitations. She is active - can walk up 2 flights of stairs - / uses stationery bike without problem She has not history of clotting or bleeding problems . Get nauseated with anesthesia. Current Outpatient Medications Medication Sig albuterol HFA (VENTOLIN) 108 (90 Base) MCG/ACT Inhalation Aero Soln Take 2 Puffs by inhalation EVERY FOUR HOURS NEEDED (shortness of breath). buPROPion (WELLBUTRIN SR) 150 MG Oral TABLET SR 12 HR TAKE 1 TABLET BY MOUTH TWICE A DAY CLINDAMYCIN PHOSPHATE,TOPICAL, 1 % Apply externally Lotion 1 Appl by Topical route DAILY. Apply to scalp sores once daily until resolved cyclobenzaprine (FLEXERIL) 10 MG Oral Tab Take 1 Tab by mouth EVERY BEDTIME. Dexlansoprazole 30 MG Oral CAPSULE DELAYED RELEASE Take 30 mg by mouth DAILY. diclofenac (VOLTAREN) 75 MG Oral Tab EC Take 1 Tab by mouth TWICE DAILY. Dulaglutide (TRULICITY) 1.5 MG/0.5ML Subcutaneous Solution Pen-injector Inject 1.5 mg beneaththe skin EVERY 7 DAYS. duloxetine (CYMBALTA) 60 MG Oral CAPSULE ENTERIC COATED PARTICLES TAKE 1 CAPSULE BY MOUTH DAILY gabapentin (NEURONTIN) 300 MG Oral Cap TAKE 1 CAPSULE BY MOUTH EVERY NIGHT AT BEDTIME . TAKE WITH 600 MG TABLET TO EQUAL 900MG AT BEDTIME. Gabapentin 600 MG Oral Tab TAKE 1 TABLET BY MOUTH 3 TIMES DAILY JARDIANCE 25 MG Oral Tab TAKE 1 TABLET BY MOUTH DAILY . EQUIVALENT TO EMPAGLIFLOZIN ketoconazole (NIZORAL) 2 % Apply externally Shampoo 120 Appl by Topical route THREE TIMES PERWEEK. Use as a shampoo, leave on for 5 min then wash off LANTUS SOLOSTAR 100 UNIT/ML Subcutaneous Solution Pen-injector INJECT SUBCUTANEOUSLY 65 UNITS TWO TIMES DAILY losartan (COZAAR) 25 MG Oral Tab TAKE 1 TABLET BY MOUTH DAILY metFORMIN (GLUCOPHAGE) 850 MG Oral Tab TAKE 1 TABLET BY MOUTH TWICE A DAY [place] [employer] Syringes Does not apply Misc 1 Each by Does not apply route TWICE DAILY. BD PEN UF SHORT 31G 16 Omeprazole 40 MG Oral CAPSULE DELAYED RELEASE Take 1 Cap by mouth DAILY. triamcinolone (KENALOG,ARISTOCORT) 0.1 % Apply externally Cream APPLY DAILY TO OUTSIDE OF EARS PRN No current facility-administered medications for this visit. Patient Active Problem List Diagnosis Date Noted Systemic involvement of connective tissue (HCC) 05/16/2018 Chronic obstructive pulmonary disease with acute exacerbation (HCC) 05/16 Morbid obesity due to excess calories (HCC) 05/16/2018 Dysphagia 03/11/2018 Granular cell tumor Esophageal, x2, s/p resection Depression with anxiety 05/22/2017 Nuclear sclerotic cataract of both eyes 05/07/2017 Essential hypertension 01/24/2017 Gastroesophageal reflux disease without esophagitis 01/24/2017 EGD 05/2016 showed old healed esophageal scar s/p distal esophagus submucosal nodule removal 06/2015, biopsy positive for granular cell tumor. repeat EGD 1 year. [place] [facility] [place] EM on CPAP 01/24/2017 PEREZ (nonalcoholic steatohepatitis) 01/24/2017 Right lateral epicondylitis 08/29/2016 Bilateral carpal tunnel syndrome 08/29/2016 Diabetic polyneuropathy associated with type 2 diabetes mellitus (HCC) Type 2 diabetes mellitus with diabetic polyneuropathy, with long-term current use of insulin (HCC) 07/05/2016 Delayed gastric emptying 06/19/2016 Disorder of refraction and accommodation 05/01/2016 Bilateral dry eyes 05/01/2016 Microalbuminuria 09/06/2015 Submucosal nodules 07/27/2015 Recurrent chest pain 08/24/2014 Negative thallium stress test 08/19/14 Asthma 05/03/2011 Postmenopausal no period since september 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 Vitamin D deficiency 05/13/2009 Dyslipidemia 02/07/2009 Family History Problem Relation Age of Onset Cervical Cancer Maternal Aunt Cancer Maternal Aunt cervical Breast Cancer Paternal Grandmother Diabetes Mother Hypertension Mother Arrythmia Mother Afib High Cholesterol Mother afib Skin Cancer Mother Diabetes Father Hypertension Father Heart Disease Father Coronary spasm Genitourinary () Father Seizures Father as a child Respiratory Father COPD Other Diagnosed Disorder Father phosphate deficiency Skin Cancer Father Heart Disease Paternal Grandfather Cancer Paternal Grandfather prostate Alcohol/Drug No family history Allergies No family history Arthritis No family history Asthma No family history Blood Disease No family history Genetic No family history GI No family history Psychiatry No family history Stroke No family history Thyroid No family history No cardiopulmonary symptoms No upper or lower GI complaints No urinary tract symptoms. No bruising/ bleeding. No neurological complaints . No insomnia.+ . Social History Tobacco Use Smoking status: Former Smoker Packs/day: 1.50 Years: 30.00 Pack years: 45.00 Types: Cigarettes Last attempt to quit: 11/19/2016 Years since quittin.3 Smokeless tobacco: Never Used Tobacco comment: 1.5 pack daily for 30 years, quit on 11/19/2016 Substance Use Topics Alcohol use: No Alcohol/week: 0.0 standard drinks Drug use: No OBJECTIVE: BP 122/76 | Pulse 100 | Ht 5' 4" (1.626 m) | Wt 211 lb 12.8 oz (96.1 kg) | LMP 11/16/2008 | SpO2 96% | BMI 36.36 kg/m . Heent neg Neck no JVD, thyromegaly or bruit Lungs Clear CV rrr Abd soft, nontender, no organomegaly Ext no edema; no lesions; pulses intact Neuro: intellect intact ; motor including gait unremarkable EKG - NSR - low voltage - no ischemic change - A/P ICD-9-CM ICD-10-CM 1. Preop examination V72.84 Z01.818 AMBULATORY 12 LEAD EKG (GLOBAL) 2. Flu vaccine need V04.81 Z23 PA FLU VACCINE PRES FREE 6MOS+ 3. Type 2 diabetes mellitus with diabetic polyneuropathy, with long-term current use of insulin (HCC) 250.60 E11.42 357.2 Z79.4 V58.67 4. EM on CPAP 327.23 G47.33 V46.8 Z99.89 5. PEREZ (nonalcoholic steatohepatitis) 571.8 K75.81 Patient has one risk aka the RCRI tool - her risk of a cardiovascular complication is 1% Addendum Note made of new iron deficiency anemia that is seen on recent blood work - B12 is ok - This has developed since the last blood work 03/11 when HCT was 44 - MCV 83 Patient denies any obvious loss of blood - no blood donations/ nose bleeds/ surgery . Also denies and GI upset or dark stools - Last colon was 07/10 ; Last UGI with baliban dilataton was 03/11 Results for orders placed or performed in visit on 04/01/19 TOTAL IRON BINDING CAPACITY Result Value Ref Range Iron Binding Capacity 492 (H) 261 - 478 UG/DL COMPREHENSIVE METABOLIC PANEL Result Value Ref Range Sodium 141 134 - 145 mmol/L Potassium 4.0 3.5 - 5.1 mmol/L Chloride 107 98 - 107 mmol/L CO2 19 (L) 22 - 30 mmol/L Calcium 9.4 8.3 - 10.1 mg/dl Albumin 4.3 3.5 - 5.0 g/dl BUN 13 7 - 17 mg/dl Creatinine 0.7 0.7 - 1.2 mg/dl Glucose 249 (H) 70 - 99 mg/dl Total Protein 7.7 6.3 - 8.2 g/dl Total Bilirubin 0.4 0.0 - 1.1 MG/DL AST 76 (H) 15 - 46 U/L ALT 62 (H) 9 - 52 U/L Alkaline Phosphatase 139 40 - 150 U/L eGFR >60 See Interpretation Below ml/min/1.73ml Sq BUN/Creatinine Ratio 19 6 - 22 RATIO Anion Gap 15 (H) 3 - 11 mmol/L A/G Ratio 1.3 0.8 - 2.0 ratio CBC WITH DIFFERENTIAL Result Value Ref Range WBC Count 5.17 3.98 - 10.04 K/uL RBC Count 4.58 3.93 - 5.22 M/UL Hemoglobin 10.2 (L) 11.2 - 15.7 g/dL Hematocrit 34.8 34.1 - 44.9 % MCV 76.0 (L) 79.4 - 94.8 FL MCH 22.3 (L) 25.6 - 32.2 PG MCHC 29.3 (L) 32.2 - 35.5 g/dL Platelet Count 254 182 - 369 K/uL MPV 10.6 9.4 - 12.3 FL RDW 18.4 (H) 11.7 - 14.4 % Neutrophil % 53.4 34.0 - 71.1 % Lymphocyte % 34.0 19.3 - 51.7 % Monocyte % 8.7 4.7 - 12.5 % Eosinophil % 2.3 0.7 - 5.8 % Basophil % 0.8 0.1 - 1.2 % nRBC % 0.0 0.0 - 0.2 % Neutrophil # 2.76 1.56 - 6.13 K/UL Lymphocyte # 1.76 1.18 - 3.74 K/UL Monocyte # 0.45 0.24 - 0.86 K/UL Eosinophil # 0.12 0.04 - 0.36 K/UL Basophil # 0.04 0.01 - 0.08 K/UL Immature Gran % 0.8 (H) 0.0 - 0.4 % Immature Gran # 0.04 (H) 0.00 - 0.03 K/uL NRBC # 0.00 0.00 - 0.12 K/uL VITAMIN A (RETINOL) Result Value Ref Range Vitamin A (Retinol) 40 38 - 98 mcg/dL VITAMIN E (TOCOPHEROL) Result Value Ref Range Alpha Tocopherol 12.3 5.7 - 19.9 mg/L Beta Gamma Tocopherol 1.5 <=4.3 mg/L VITAMIN D 25 HYDROXY (MCQUEEN) Result Value Ref Range Vitamin D 25 HYDROXY 20.5 (L) 32.0 - 100.0 ng/ml Narrative Interpretation: <20 ng/ml Deficiency 20-<30 ng/ml Insufficiency 32-100 ng/ml Sufficiency >100 ng/ml Potential Toxicity VITAMIN B12 / FOLATE Result Value Ref Range Vitamin B12 890 239 - 931 pg/ml Folate 13.5 2.8 - 20.0 ng/ml LIPID PROFILE Result Value Ref Range Cholesterol 181 <200 mg/dl HDL Cholesterol 26 (L) >50 mg/dl Triglycerides 210 (H) <150 mg/dl LDL Cholesterol 113 (H) <100 MG/DL Cholesterol / HDL Ratio 7.0 RATIO LDL / HDL Ratio 4.3 Non-HDL Cholesterol 155 (H) 0 - 130 MG/DL Patient Fasting: Yes GLYCOHEMOGLOBIN A1C Result Value Ref Range Glycohemoglobin A1C 9.3 (H) <=5.6 % VITAMIN B1, PLASMA (FASTING) Result Value Ref Range Vitamin B1, Plasma 7 (L) 8 - 30 nmol/L AUTHOR: Caty Murphy MD 12:17 04/08/2019 documented in this encounter Plan of Treatment Date Type Specialty Care Team Description 05/11/2019 Ocular Visit Optometry Giovany Amaral L, OD [address] [facility] [place] [address] 07/15/2019 Office Visit Nephrology Tiffani Alonzo MD [address] [place] [address] 12/23/2019 Office Visit Dermatology Stella Espinoza MD [address] [facility] [place] [address] Name Type Priority Associated Diagnoses Order Schedule AMBULATORY 12 LEAD EKG EKG Routine Preop examination Ordered: 04/08/2019 (GLOBAL) IRON & TIBC WITH % Lab Routine Iron deficiency anemia, Expected: 04/08/2019 SATURATION unspecified iron (Approximate), deficiency anemia type Expires: 10/05/2019 FIT (FECAL OCCULT Lab Routine Iron deficiency anemia, Expected: 04/08/2019 IMMUNOCHEMICAL TEST) unspecified iron (Approximate), deficiency anemia type Expires: 10/05/2019 Health Maintenance Due Date Last Done Comments FOOT EXAM 08/05/2015 08/04/2014, 08/04/2014, 08/04/2014, Additional history exists PAP SMEAR 09/04/2018 09/05/2015, 09/05/2015, 08/10/2014, Additional history exists EGD (ESOPHAGODUODENOSCOPY) 09/10/2018 03/12/2018, 03/12/2018, 06/18/2017, Additional history exists INFLUENZA VACCINE (#1) 2018 01/01/2018, 01/25/2016, 01/24/2015, Additional history exists HEMOGLOBIN A1C 07/01/2019 04/01/2019, 08/11/2018, 04/02/2018, Additional history exists MAMMOGRAM (SCREENING) 08/07/2019 08/06/2018, 06/25/2017, 04/20/2015, Additional history exists LIPID DISORDER SCREENING 04/01/2020 04/01/2019, 08/11/2018, 12/25/2017, Additional history exists DEPRESSION SCREENING 04/08/2020 04/08/2019, 12/08/2015 ZOSTER IMMUNIZATION SERIES 04/08/2020 Postponed from (1 of 2) 2017 (Vaccine not available) Diabetic Eye Exam 05/07/2020 05/07/2018, 05/07/2018, 05/07/2018, Additional history exists Colonoscopy 07/15/2020 07/15/2017 DTaP/Tdap/Td Vaccines (2 - 12/19/2021 12/20/2011 Tdap) PNEUMOCOCCAL 0-64 YRS Completed 03/06/2016 HEPATITIS A IMMUNIZATION Aged Out No longer eligible SERIES based on patient's age to complete this topic HPV IMMUNIZATION SERIES Aged Out No longer eligible based on patient's age to complete this topic MENINGOCOCCAL VACCINE IMM Aged Out No longer eligible based on patient's age to complete this topic documented as of this encounter Goals Goal Patient Goal Associated Recent Patient-Stated? Author Type Problems Progress Blood Pressure Blood Pressure 122/76 No Josue, < 140/90 (04/08/2019 Shanae, 11:20 AM EST) [place] Note: Hypertension Care Plan Based on the patient's clinical history and according to JNC 8 guidelines target blood pressure goal is less than 140/90. Based on the patient's last blood pressure of BP: 108/66 mmHg the patient is at at goal. As your provider, it is important that I advise you regarding: your current medications and help you with any challenges you may face taking your medications as directed (ex. instructions, cost, side effects, and interactions). Important lifestyle changes: exercise, weight reduction, diet, dietary sodium reduction, medication compliance and smoking cessation your clinical goals and how you can achieve success: weight reduction, exercise plan, diet improvements and smoking cessation medication management: no changes today patient education/self-management tools provided: Yes To successfully manage my Hypertension I will: monitor my blood pressure daily, understanding that my goal is less than 140/ 90 per my healthcare provider's recommendation. I will schedule an appointment with my provider if consistent abnormal readings greater than 160/100. take medications every day as prescribed by my healthcare provider and if unable to take them I will discuss with my provider. monitor for symptoms of chest pain, chest tightness/pressure, irregular heartbeat, persistent dizziness, radiating arm pain, and neck or jaw pain. If any of these symptoms are noticed I will seek medical attention immediately by calling 911 exercise/walk 30 minutes 7 day(s) per week. If I experience chest pain, chest tightness, or shortness of breath, I will seek medical attention immediately. follow a diet rich in fruits, vegetables, and low-fat dairy products with reduced content of saturated & total fat. I will reduce my sodium intake daily. An example is the DASH diet. To obtain more information please refer to the DASH Eating Plan listed in Educational Resources. record my blood pressure results. Tode is safe and secure way for you to do this in your medical record online. try to obtain an ideal body weight. My recent weight was Weight: 196 lb 4.8 oz (89.041 kg). My weight loss goal for my next office visit is 10 lbs. limit alcohol consumption. For men two drinks per day and women one drink per day. if currently smoking, will discuss how to quit smoking with my healthcare provider and work towards quitting. Educational Resources: National Heart, Lung, & Blood [place] http://nhlbi.nih.gov/hbp/index.html The DASH Diet Eating Plan http://www.nhlbi.nih.gov/health/health-topics/ topics/dash/ Academy of Nutrition & DIetetics http://eatright.org National Smoking Cessation Site http://smokefree.gov Blood Pressure Blood Pressure HTN (hypertension), 122/76 No Saline, < 140/90 benign (04/08/2019 11:20 [place] Jolly AM) Note: Hypertension Care Plan Based on the patient's clinical history and according to JNC 8 guidelines target blood pressure goal is less than 140/90. Based on the patient's last blood pressure of BP: 122/80 mmHg the patient is at at goal and discussed blood pressure goal with patient. As your provider, it is important that I advise you regarding: your current medications and help you with any challenges you may face taking your medications as directed (ex. instructions, cost, side effects, and interactions). Important lifestyle changes: exercise, weight reduction, diet, dietary sodium reduction, medication compliance and smoking cessation your clinical goals and how you can achieve success: weight reduction, exercise plan, diet improvements and smoking cessation medication management: no changes today patient education/self-management tools provided: Yes To successfully manage my Hypertension I will: monitor my blood pressure daily, understanding that my goal is less than 140/ 90 per my healthcare provider's recommendation. I will schedule an appointment with my provider if consistent abnormal readings greater than 160/100. take medications every day as prescribed by my healthcare provider and if unable to take them I will discuss with my provider. monitor for symptoms of chest pain, chest tightness/pressure, irregular heartbeat, persistent dizziness, radiating arm pain, and neck or jaw pain. If any of these symptoms are noticed I will seek medical attention immediately by calling 911 exercise/walk 30 minutes 5 day(s) per week. If I experience chest pain, chest tightness, or shortness of breath, I will seek medical attention immediately. follow a diet rich in fruits, vegetables, and low-fat dairy products with reduced content of saturated & total fat. I will reduce my sodium intake daily. An example is the DASH diet. To obtain more information please refer to the DASH Eating Plan listed in Educational Resources. record my blood pressure results. [employer] is safe and secure way for you to do this in your medical record online. try to obtain an ideal body weight. My recent weight was Weight: 196 lb 11.2 oz (89.223 kg). My weight loss goal for my next office visit is referral placed for bariatric weight loss support. limit alcohol consumption. For men two drinks per day and women one drink per day. if currently smoking, will discuss how to quit smoking with my healthcare provider and work towards quitting. Educational Resources: National Heart, Lung, & Blood [place] http://nhlbi.nih.gov/hbp/index.html The DASH Diet Eating Plan http://www.nhlbi.nih.gov/health/health-topics/ topics/dash/ Academy of Nutrition & DIetetics http://eatright.org National Smoking Cessation Site http://smokefree.gov Blood Pressure < Blood Pressure 122/76 (04/08/2019 11:20 Shanae Cotton CRNP 140/90 AM EST) Note: This is an individualized treatment (blood pressure) goal for Shannan Ocampo : Displayed above (on the left) is your goal for blood pressure control. Your most recent blood pressure is also shown above, on the right. You should try to achieve blood pressures that are lower than your goal listed above (on the left). Depression screen (PHQ-9) total score < 5 Depression No Eileen Harrison RN Note: This is an individualized treatment (depression) goal for Shannan Ocampo: Displayed above is your goal for a depression screening (PHQ-9) score that would indicate good control of your depression. Diabetes < 7.0 Diabetes 9.3 (04/01/2019 9:00 AM EST) Shanae Cotton CRNP Note: Diabetes Care Plan According to current 2014 ADA guidelines the patient A1C goal is less than 7. The patient's last A1C was Lab Results Lab Results Value Date/Time GLYCO 8.9 12/04/201327 GLYCO 7.5 04/28/2013 0713 The patient is:discussed the A1C goal with the patient . As your provider, it is important that I advise you regarding: your current medications and help you with any challenges you may face taking your medications as directed (ex. instructions, cost, side effects, and interactions). Important lifestyle changes:exercise, diet, glucose monitoring, smoking cessation and medication compliance your clinical goals and how you can achieve success:weight reduction, exercise plan, diet management, glucose monitoring and smoking cessation medication management: Seek Endocrinology appointment at this time. patient education/self-management tools provided: Yes To successfully manage my Diabetes I will: have lab work every six months if my previous A1c was 7 or less. If my results were greater than 7, I will have lab work every three months. My goal is to control my diabetes by keeping A1c below 7.0 take medications every day as prescribed by my healthcare provider and if unable to take them I will discuss with my provider. exercise/walk 30 minutes 7 day(s) per week. If I experience chest pain, chest tightness, or shortness of breath, I will seek medical attention immediately. check feet daily. If sores or irritation are noticed, will seek medical attention. follow a low carbohydrate and low fat diet. My goal is an LDL (bad cholesterol) number less than 100 when I have my routine lab work. check blood sugar as instructed and will call my healthcare provider if the results are consistently below 70 or above 300. I will monitor for symptoms of low blood sugar (feeling faint, dizzy, lig htheaded, jittery, sweaty, or hungry), if symptoms are noticed, I will eat or drink something (glucose tabs, orange juice, candy) to help raise sugar. record my blood sugar results (including dextrose sticks). [employer] is safe and secure way for you to do this in your medical record online. try to obtain an ideal body weight. My recent weight was Weight: 196 lb 4.8 oz (89.041 kg). My weight loss goal for my next office visit is 10 lbs. to prevent kidney problems common to people with diabetes I will complete a yearly Microalbumin to check for protein in urine. I will talk with my healthcare provider about medications to prevent diabetic renal disease. to prevent diabetic retinopathy I will see an eye doctor yearly. A yearly dilated eye exam helps prevent blindness. if currently smoking, will discuss how to quit smoking with my healthcare provider and work towards quitting. Diabetes < 7.0 Diabetes DM (diabetes 9.3 (04/01/2019 9:00 No Shanae Salas, mellitus) AM EST) [employer] Note: Diabetes Care Plan According to current 2014 ADA guidelines the patient A1C goal is less than 7. The patient's last A1C was Lab Results Component Value Date GLYCOHEMOGLOBIN A1C 6.8 06/16/15 The patient is:at goal and discussed the A1C goal with the patient . As your provider, it is important that I advise you regarding: your current medications and help you with any challenges you may face taking your medications as directed (ex. instructions, cost, side effects, and interactions). Important lifestyle changes:exercise, diet, glucose monitoring and medication compliance your clinical goals and how you can achieve success:weight reduction, exercise plan, diet management, glucose monitoring and smoking cessation medication management: Defer to ENdocrinology- no changes today patient education/self-management tools provided: Yes To successfully manage my Diabetes I will: have lab work every six months if my previous A1c was 7 or less. If my results were greater than 7, I will have lab work every three months. My goal is to control my diabetes by keeping A1c below 7.0 take medications every day as prescribed by my healthcare provider and if unable to take them I will discuss with my provider. exercise/walk 30 minutes 5 day(s) per week. If I experience chest pain, chest tightness, or shortness of breath, I will seek medical attention immediately. check feet daily. If sores or irritation are noticed, will seek medical attention. follow a low carbohydrate and low fat diet. My goal is an LDL (bad cholesterol) number less than 100 when I have my routine lab work. check blood sugar as instructed and will call my healthcare provider if the results are consistently below 70 or above 300. I will monitor for symptoms of low blood sugar (feeling faint, dizzy, lig htheaded, jittery, sweaty, or hungry), if symptoms are noticed, I will eat or drink something (glucose tabs, orange juice, candy) to help raise sugar. record my blood sugar results (including dextrose sticks). [employer] is safe and secure way for you to do this in your medical record online. try to obtain an ideal body weight. My recent weight was Weight: 196 lb 11.2 oz (89.223 kg). My weight loss goal for my next office visit is - referral placed for Bariatric weight loss support. to prevent kidney problems common to people with diabetes I will complete a yearly Microalbumin to check for protein in urine. I will talk with my healthcare provider about medications to prevent diabetic renal disease. to prevent diabetic retinopathy I will see an eye doctor yearly. A yearly dilated eye exam helps prevent blindness. if currently smoking, will discuss how to quit smoking with my healthcare provider and work towards quitting. Glycohemoglobin A1c < 7.0 Diabetes 9.3 (04/01/2019 9:00 AM Shanae Cotton CRNP EST) Note: This is an individualized treatment (diabetes control, HgbA1C) goal for Shannan Lara Damaris: Displayed above is your progress towards your HgbA1C goal. Your goal is shown above (on the left); your most recent HgbA1C is shown on the right. Note that lower numbers are better. Work with your Track Vehicle Repairer General Shanae Cotton CRNP Note: This is an individualized treatment (frequent ED use) goal for Shannan Jane Ocampo: Please work with your Track Vehicle Repairer, who will assist you in meeting your goals of care. Hyperlipidemia Lifestyle Shanae Cotton CRNP Note: 1. LDL<100 2. Triglycerides (Trig) <150 3. Weight Reduction-BMI <25 4. Heart Health Diet -Eat 5 servings of fruits and vegetables every day. -Dietary fiber is important. 25 grams a day for a woman and 38 grams of fiber a day for men -Trans fats and saturated fats chould be avoided in favor of monounsaturated and polyunsaturated fats. -Do not replace fat with refined carbohydrate. This would decrease HDL -Eat vegetables as snacks. -Put fruit on your cereal -Replace refined grains ( like white bread, white rice) with whole grains ( like whole wheat bread and brown rice) -Cook with oils that contain polyunsaturated and monounsaturated fats, like olive, canola, and peanut oil -Choose margarine that do not have partially hydrogenated oils -Soft margarines ( especially squeeze margarines) have less trans fatty acids. -Eat fewer baked goods that are store made and contain partially hydrogenated fats (many types of crackers, cookies, and cupcakes) -Choose non sweetened and non alcoholic beverages, like water, at meals and parties. High Risk Lifestyle Shanae Cotton CRNP Note: High Risk Patient Care Plan The criteria for a patient to be considered High Risk, the patient must have the following diagnosis of Diabetes and be a current smoker. As your provider, it is important that I advise you regarding: your current medications and help you with any challenges you may face taking your medications as directed (ex. Instruction, cost, side effects, and interactions) Important lifestyle changes:exercise, diet, glucose monitoring, medication compliance and smoking cessation your clinical goals and how you can achieve success:weight reduction, exercise plan, diet management, glucose monitoring and smoking cessation medication Management:please consider recommendation for smoking cessation. patient Education/Self-Management tools provided:Yes discussed smoking cessation with patient. Patient readiness to quit:yes discussed smoking cessation plan according to AHRQ guidelines:counseled patient on the risks of tobacco use and advised patient to quit and offered support To successfully manage my health I will: have lab work every six months if my previous A1C was 7 or less. If my results were greater than 7, I will have lab work every three months. My goal is to control my diabetes by keeping A1c below 7.0 check blood sugar as instructed and will call my healthcare provider if the results are consistently below 70 or above 300. I will monitor for symptoms of low blood sugar (feeling faint, dizzy, lig htheaded, jittery, sweaty, or hungry), if symptoms are noticed, I will eat or drink something (glucose tabs, orange juice, candy) to help raise sugar. to prevent kidney problems common to people with diabetes I will complete a yearly Microalbumin to check for protein in urine. record my blood sugar results. [employer] is safe and secure way for you to do this in your medical record online. take medications every day as prescribed by my healthcare provider and if unable to take them I will discuss with my provider. follow a low carbohydrate and low fat diet. My goal is an LDL (bad cholesterol) number less than 100 when I have my routine lab work. exercise/walk 30 minutes 7 day(s) per week. If chest pain, chest tightness/ pressure, or shortness of breath is noticed, will seek medical attention immediately. try to obtain an ideal body weight. My recent weight was Weight: 196 lb 4.8 oz (89.041 kg). My weight loss goal for my next office visit is 10 lbs . limit alcohol consumption. For men 2 drinks per day and women 1 drink per day. My quit date is set for Contemplation state Notify my friends, family, and co-workers about decision to quit. Will ask for their support and understanding Remove tobacco products from my environment. I will ask people not to smoke around me or in my home. I will anticipate challenges at the beginning and will try not to be discouraged. To remember the benefits of quitting such as improved health, feeling better about myself, saving money, etc. Reducing stressors and avoiding triggers are essential keys to my success Finding ways to distract myself when I have the urge to smoke such as taking a walk, reading, playing a board game, putting together a puzzle, etc. Recognize reasons for relapse in my past attempts. What did and did not work for me Consider connecting with group, individual, or telephone counseling Education Resources: [place] Diabetic Association http://diabetes.org Academy of Nutrition & Dietetics http://eatright.org National Smoking Cessation http://smokefree.gov AHRQ: Treating Tobacco Use & Dependence http://www.ahrq.gov/professionals/clinicians-providers/guidelines- recommendations/tobacco/index.html [facility] Quitlines: [place]: 7-037-CFBQ-NOW (012-213-7023) ID: http://www.[employer]/ [facility] Smoke Free Community: http://www.portal.[facility].ok.us/portal/logistics service representative.pt/community/smoke_free/[address] [facility] Tobacco Control Program: http://www.health.az.gov/prevention/tobacco_control Hyperten Lifestyle HTN (hypertension), benign No Shanae Salas CRNP Note: 1. LDL<100 2. Triglycerides (Trig) <150 3. Weight Reduction-BMI <25 4. Heart Health Diet -Eat 5 servings of fruits and vegetables every day. -Dietary fiber is important. 25 grams a day for a woman and 38 grams of fiber a day for men -Trans fats and saturated fats chould be avoided in favor of monounsaturated and polyunsaturated fats. -Do not replace fat with refined carbohydrate. This would decrease HDL -Eat vegetables as snacks. -Put fruit on your cereal -Replace refined grains ( like white bread, white rice) with whole grains ( like whole wheat bread and brown rice) -Cook with oils that contain polyunsaturated and monounsaturated fats, like olive, canola, and peanut oil -Choose margarine that do not have partially hydrogenated oils -Soft margarines ( especially squeeze margarines) have less trans fatty acids. -Eat fewer baked goods that are store made and contain partially hydrogenated fats (many types of crackers, cookies, and cupcakes) -Choose non sweetened and non alcoholic beverages, like water, at meals and parties. High Risk Lifestyle Shanae Cotton CRNP Note: High Risk Patient Care Plan The criteria for a patient to be considered High Risk, the patient must have the following diagnosis of Diabetes and be a current smoker. As your provider, it is important that I advise you regarding: your current medications and help you with any challenges you may face taking your medications as directed (ex. Instruction, cost, side effects, and interactions) Important lifestyle changes:exercise, diet, glucose monitoring and smoking cessation your clinical goals and how you can achieve success:weight reduction, exercise plan, diet management, glucose monitoring and smoking cessation medication Management:no changes today patient Education/Self-Management tools provided:Yes discussed smoking cessation with patient. Patient readiness to quit:yes discussed smoking cessation plan according to AHRQ guidelines:counseled patient on the risks of tobacco use, advised patient to quit and offered support and discussed current use pattern To successfully manage my health I will: have lab work every six months if my previous A1C was 7 or less. If my results were greater than 7, I will have lab work every three months. My goal is to control my diabetes by keeping A1c below 7.0 check blood sugar as instructed and will call my healthcare provider if the results are consistently below 70 or above 300. I will monitor for symptoms of low blood sugar (feeling faint, dizzy, lig htheaded, jittery, sweaty, or hungry), if symptoms are noticed, I will eat or drink something (glucose tabs, orange juice, candy) to help raise sugar. to prevent kidney problems common to people with diabetes I will complete a yearly Microalbumin to check for protein in urine. record my blood sugar results. [employer] is safe and secure way for you to do this in your medical record online. take medications every day as prescribed by my healthcare provider and if unable to take them I will discuss with my provider. follow a low carbohydrate and low fat diet. My goal is an LDL (bad cholesterol) number less than 100 when I have my routine lab work. exercise/walk 30 minutes 5 day(s) per week. If chest pain, chest tightness/ pressure, or shortness of breath is noticed, will seek medical attention immediately. try to obtain an ideal body weight. My recent weight was Weight: 196 lb 11.2 oz (89.223 kg). My weight loss goal for my next office visit is referral placed for bariatric weight loss support. limit alcohol consumption. For men 2 drinks per day and women 1 drink per day. My quit date is set for cutting back. Notify my friends, family, and co-workers about decision to quit. Will ask for their support and understanding Remove tobacco products from my environment. I will ask people not to smoke around me or in my home. I will anticipate challenges at the beginning and will try not to be discouraged. To remember the benefits of quitting such as improved health, feeling better about myself, saving money, etc. Reducing stressors and avoiding triggers are essential keys to my success Finding ways to distract myself when I have the urge to smoke such as taking a walk, reading, playing a board game, putting together a puzzle, etc. Recognize reasons for relapse in my past attempts. What did and did not work for me Consider connecting with group, individual, or telephone counseling Education Resources: [place] Diabetic Association http://diabetes.org Academy of Nutrition & Dietetics http://eatright.org National Smoking Cessation http://smokefree.gov AHRQ: Treating Tobacco Use & Dependence http://www.ahrq.gov/professionals/clinicians-providers/guidelines- recommendations/tobacco/index.html [facility] Quitlines: [place]: 9-345-OBJN-NOW ([phone]) ID: http://www.[employer]/ [facility] Smoke Free Community: http://www.portal.state.ok.us/portal/logistics service representative.pt/community/smoke_free/[address] [facility] Tobacco Control Program: http://www.health.az.gov/prevention/tobacco_control Hyperlipidemia Lifestyle Dyslipidemia No Shanae Salas CRNP Note: 1. LDL<100 2. Triglycerides (Trig) <150 3. Weight Reduction-BMI <25 4. Heart Health Diet -Eat 5 servings of fruits and vegetables every day. -Dietary fiber is important. 25 grams a day for a woman and 38 grams of fiber a day for men -Trans fats and saturated fats chould be avoided in favor of monounsaturated and polyunsaturated fats. -Do not replace fat with refined carbohydrate. This would decrease HDL -Eat vegetables as snacks. -Put fruit on your cereal -Replace refined grains ( like white bread, white rice) with whole grains ( like whole wheat bread and brown rice) -Cook with oils that contain polyunsaturated and monounsaturated fats, like olive, canola, and peanut oil -Choose margarine that do not have partially hydrogenated oils -Soft margarines ( especially squeeze margarines) have less trans fatty acids. -Eat fewer baked goods that are store made and contain partially hydrogenated fats (many types of crackers, cookies, and cupcakes) -Choose non sweetened and non alcoholic beverages, like water, at meals and parties. Weight loss vs. 18 mo Lifestyle 2.2 (04/08/2019 11:20 AM No Shanae Salas CRNP max (lbs) >= 10 EST) Note: This is an individualized lifestyle goal for Shannan Ocampo: Your body mass index (BMI) is more than 30. You should lose weight. A reasonable starting goal is to lose 10 pounds. Displayed above is how many pounds you have lost thus far towards your 10 pound weight loss goal. Keep immunizations current Lifestyle No Shanae aSlas CRNP Note: This is an individualized lifestyle goal for Shannan Ocampo: Please be sure to keep up-to-date on recommended immunizations. For example, this would include a yearly influenza vaccine. Immunization status can be seen by looking at the Health Maintenance sections of your [employer], Plan of Care, and any After Visit Summaries. Regular appointments with primary care provider Lifestyle No Shanae Salas CRNP (PCP) Note: This is an individualized lifestyle goal for Shannan Jane Ocampo: Please schedule regular visits with your primary care provider (PCP). Care provided in your PCP's office can help reduce your need for additional trips to the Emergency Room. Keep a regular sleep schedule Lifestyle Eileen Orta RN Note: This is an individualized lifestyle goal for Shannan Jane Irbynehanessa: Please maintain a regular sleep schedule. This may help with some symptoms of depression. Take all prescribed medications as Self-management Shanae Cotton CRNP directed Note: This is an individualized self-management goal for Shannan Ocampo: Please take all prescribed medications as directed. 1. Do not skip doses. If you cannot afford your medications, talk with your doctor. 2. Use a pill reminder system such as a pill box if needed. Your pharmacist can help you with this. 3. Contact your Pharmacy 5 days before your medication runs out. If you cannot take your medications for any reasons, talk with your doctor. 4. Please bring all of your medication bottles and inhalers (or a list of all your medications/inhalers) with you to every visit. Potential barriers to meeting all of your care plan goals will continue to be addressed on an ongoing basis. documented as of this encounter Results Not on filedocumented in this encounter Visit Diagnoses Diagnosis Flu vaccine need Need for prophylactic vaccination and inoculation against influenza Preop examination Preoperative examination, unspecified Type 2 diabetes mellitus with diabetic polyneuropathy, with long-term current use of insulin (HCC) EM on CPAP Obstructive sleep apnea (adult) (pediatric) PEREZ (nonalcoholic steatohepatitis) Other chronic nonalcoholic liver disease Iron deficiency anemia, unspecified iron deficiency anemia type documented in this encounter Insurance Payer Benefit Plan / Subscriber ID Effective Dates Phone Address Type Group [employer] xxxxxxxxxx 2012-Present [employer] Guarantor Name Account Type Relation to Date of Phone Billing Patient Address Shannan Ocampo Personal/Family [phone] (Home) [address] [place], [place] ([place]) [id number] documented as of this encounter Advance Directives Code Status Date Activated Date Inactivated Comments Full Code 03/11/2018 9:56 PM 03/12/2018 9:18 PM Does the patient have decision making capacity? Yes Order was discussed with: Patient I discussed all options and patient/surrogate requested and agreed to: Full Code Full Code 09/02/2014 2:31 PM 09/04/2014 1:37 PM Does patient have decision making capacity? yes Order discussed with: Patient I discussed all options and patient/surrogate requested and agreed to: Other (Full code)
--- OUTSIDE RECORDS SUMMARY | 2019-05-07 10:31 | XMS REPORT | Summary of Care ---
:1965 Author Organization [facility] Address [address] [place] [address] Care Team Providers Name Role Phone Caty Murphy Primary Care Provider Reason for Referral Outpatient Procedure (Routine) Status Reason Specialty Diagnoses / Referred By Referred To Procedures Contact Contact Authorized GASTROENTEROLOGY / Diagnoses Iron deficiency anemia, unspecified iron deficiency anemia type Lottie Martinez Khan, Hafiz, Gastroenterology [employer] [address] [place] [phone] Phone: Fax: Outpatient Procedure (Routine) Status Reason Specialty Diagnoses / Referred By Referred To Procedures Contact Contact Pending GASTROENTEROLOGY / Diagnoses Iron deficiency anemia, unspecified iron deficiency anemia type Lottie Martinez Khan, Hafiz, Review Gastroenterology [employer] [address] [place] [phone] Phone: Fax: Reason for Visit Reason Comments Follow Up Anemia Nausea Encounter Details Date Type Department Care Team Description 05/06/2019 Office Visit Lottei Saini NP Iron deficiency anemia, unspecified iron deficiency anemia type (Primary Dx); Gastroenterology [address] Nausea [address] [place] [address] [place] [id number] Allergies Active Allergy Reactions Severity Noted Date Comments Rosuvastatin Calcium Musculoskeletal 11/19/2018 Aches Penicillins Hives 01/07/2007 documented as of this encounter (statuses as of 05/06/2019) Medications Medication Sig Dispensed Refills Start Date End Date Status triamcinolone APPLY DAILY TO 15 g 1 01/03/2018 Active (KENALOG,ARISTOCORT) OUTSIDE OF EARS 0.1 % Apply externally PRN Cream losartan (COZAAR) 25 TAKE 1 TABLET BY 90 Tab 3 06/11/2018 Active MG Oral MOUTH DAILY TabIndications: Essential hypertension albuterol HFA Take 2 Puffs by 3 Inhaler 3 08/13/2018 Active (VENTOLIN) 108 (90 inhalation EVERY Base) MCG/ACT FOUR HOURS Inhalation Aero NEEDED (shortness SolnIndications: of breath). Chronic obstructive pulmonary disease with acute exacerbation (HCC), CALVILLO (dyspnea on exertion) Dewey & Syringes 1 Each by Does not 200 Each 5 10/17/2018 Active Does not apply Misc apply route TWICE DAILY. BD PEN UF SHORT 31G 08/07 Omeprazole 40 MG Oral Take 1 Cap by mouth 90 Cap 3 11/05/2018 Active CAPSULE DELAYED DAILY. RELEASE Dexlansoprazole 30 MG Take 30 mg by mouth 90 Cap 3 11/05/2018 Active Oral CAPSULE DELAYED DAILY. RELEASE JARDIANCE 25 MG Oral TAKE 1 TABLET BY 90 Tab 3 11/05/2018 Active Tab MOUTH DAILY . EQUIVALENT TO EMPAGLIFLOZIN cyclobenzaprine Take 1 Tab by mouth 90 Tab 3 11/12/2018 Active (FLEXERIL) 10 MG Oral EVERY BEDTIME. Tab diclofenac (VOLTAREN) Take 1 Tab by mouth 180 Tab 1 11/19/2018 Active 75 MG Oral Tab TWICE DAILY. ECIndications: Chronic midline low back pain without sciatica Dulaglutide Inject 1.5 mg 6 mL 3 11/21/2018 Active (TRULICITY) 1.5 beneath the skin MG/0.5ML Subcutaneous EVERY 7 DAYS. Solution Pen-injector ketoconazole (NIZORAL) 120 Appl by Topical 120 mL 3 12/10/2018 Active 2 % Apply externally route THREE TIMES ShampooIndications: PER WEEK. Use as a Seborrheic dermatitis shampoo, leave on for 5 min then wash off CLINDAMYCIN 1 Appl by Topical 60 mL 3 12/10/2018 Active PHOSPHATE,TOPICAL, 1 % route DAILY. Apply Apply externally to scalp sores once LotionIndications: daily until Folliculitis and resolved perifolliculitis LANTUS SOLOSTAR 100 INJECT 120 mL 1 01/19/2019 Active UNIT/ML Subcutaneous SUBCUTANEOUSLY 65 Solution Pen-injector UNITS TWO TIMES DAILY metFORMIN (GLUCOPHAGE) TAKE 1 TABLET BY 180 Tab 1 03/26/2019 Active 850 MG Oral Tab MOUTH TWICE A DAY buPROPion (WELLBUTRIN TAKE 1 TABLET BY 180 Tab 1 03/26/2019 Active SR) 150 MG Oral TABLET MOUTH TWICE A DAY SR 12 HRIndications: Depression with anxiety gabapentin (NEURONTIN) TAKE 1 CAPSULE BY 90 Cap 1 03/26/2019 Active 300 MG Oral MOUTH EVERY NIGHT CapIndications: Type 2 AT BEDTIME . TAKE diabetes mellitus with WITH 600 MG TABLET diabetic TO EQUAL 900MG AT polyneuropathy, with BEDTIME. long-term current use of insulin (HCC) duloxetine (CYMBALTA) TAKE 1 CAPSULE BY 90 Cap 1 03/26/2019 Active 60 MG Oral CAPSULE MOUTH DAILY ENTERIC COATED PARTICLES Gabapentin 600 MG Oral TAKE 1 TABLET BY 270 Tab 1 03/26/2019 Active TabIndications: Type 2 MOUTH 3 TIMES diabetes mellitus with DAILY diabetic polyneuropathy, with long-term current use of insulin (HCC) documented as of this encounter (statuses as of 05/06/2019) Active Problems Problem Noted Date Systemic involvement [...] tumor. repeat EGD 1 year. Repeat at [facility] 03/11 EM on CPAP 01/24/2017 PEREZ (nonalcoholic [...] as of this encounter (statuses as of 05/06/2019) Resolved Problems Problem Noted Date Resolved Date [...] as of this encounter (statuses as of 05/06/2019) Immunizations Name Administration Dates Next Due Influenza [...] Assigned at Date Recorded Not on file documented as of this encounter Last Filed Vital Signs Vital Sign Reading Time Taken Comments Blood Pressure 120/72 05/06/2019 3:57 PM EST Pulse 80 05/06/2019 3:57 PM EST Temperature - - Respiratory Rate - - Oxygen Saturation - - Inhaled Oxygen Concentration - - Weight 96.2 kg (212 lb 3 oz) 05/06/2019 3:57 PM EST Height 162.6 cm (5' 4") 05/06/2019 3:57 PM EST Body Mass Index 36.42 05/06/2019 3:57 PM EST documented in this encounter Patient Instructions Patient InstructionsLottie Martinez NP - 05/06/2019 3:40 PM ESTEgd/colonoscopy Continue iron supplementation Patient Education Gastroparesis (Delayed Gastric Emptying) Discharge Instructions About this topic Gastroparesis is also called delayed gastric emptying. It happens when food does not move through the body fast enough. Then, it takes too long to empty from the stomach. Gastroparesis makes you feel full too soon after you start eating. It may also cause an upset stomach and throwing up. Some people with high blood sugar may have this problem. For these people, it may not go away. It can also happen to people who do not have high blood sugar. What care is needed at home? Ask your doctor what you need to do when you go home. Make sure you ask questions if you do notunderstand what the doctor says. This way you will know what you need to do. Drink 8 to 10 glasses of liquid each day. Ask your doctor about using nutritional supplements. You may need to limit or avoid carbonated drinks if they make your signs worse. Walk or sit after meals rather than lying down. If you have high blood sugar, keep it under control. What follow-up care is needed? Your doctor may ask you to make visits to the office to check on your progress. Be sure to keep these visits. What drugs may be needed? The doctor may order drugs to: Help empty the stomach Prevent upset stomach and throwing up Will physical activity be limited? Talk with your doctor about the right amount of activity for you. Taking a walk after you eat may help. What changes to diet are needed? Eat 6 small meals during the day instead of 3 big meals. Eat more low-fat foods. Limit fried foods and those that are high in fat. Avoid foods that have lots of fiber like raw fruits and vegetables. Foods with fiber should be cooked until soft. What problems could happen? Not enough fluid in your body Electrolyte imbalance Problems with the esophagus Lack of good nutrition Worsening of low blood sugar Masses that prevent food from passing into the bowels What can be done to prevent this health problem? Keep blood sugar under control. Keep your body and mind healthy. Exercise often and eat healthy. Learn to manage stress. Try reflection, deep breathing, and muscle relaxation. Things like yogaand helena chi are also good. When do I need to call the doctor? Upset stomach and throwing up that does not get better Belly pain Problems eating Losing weight Teach Back: Helping You Understand The Teach Back Method helps you understand the information we are giving you. After you talk with the staff, tell them in your own words what you learned. This helps to make sure the staff has described each thing clearly. It also helps to explain things that may have been confusing. Before going home, make sure you can do these: I can tell you about my condition. I can tell you what changes I need to make with my diet or after eating. I can tell you what I will do if I have an upset stomach and throwing up that does not get better. Where can I learn more? National Digestive Diseases Information Clearinghouse https://www.niddk.nih.gov/health-information/digestive-diseases/gastroparesis/ iduzaa-twpr-qptnhvtsq NHS Choices https://www.nhs.uk/conditions/gastroparesis/ Last Reviewed Date 2018-11-21 Consumer Information Use and Disclaimer This information is not specific medical advice and does not replace information you receive from your health care provider. This is only a brief summary of general information. It does NOT include allinformation about conditions, illnesses, injuries, tests, procedures, treatments, therapies, discharge instructions or life-style choices that may apply to you. You must talk with your health care provider for complete information about your health and treatment options. This information should not beused to decide whether or not to accept your health care provider?s advice, instructions or recommendations. Only your health care provider has the knowledge and training to provide advice that is right for you. Copyright Copyright 2019 [employer] and its affiliates and/or licensors. All rights reserved. documented in this encounter Progress Notes Lottie Martinez NP - 05/06/2019 3:40 PM EST PATIENT:Shannan Ocampo : 1965 DATE OF SERVICE: 05/06/2019 Chief Complaint Patient presents with ? Follow Up ? Anemia ? Nausea SUBJECTIVE: Shannan Ocampo is a very pleasant 54-y.o. female who presents for anemia, nausea. Patient was noted to have decreased hemoglobin 10.2 on recent blood work. FIT negative. Patient denies obvious GI blood loss. Patient is menopausal. She is planning on having gastric bypass surgery but PCP concerned with this decrease possible GIB. Patient denies prior history of GIB. Last EGD 03/12/2018 normal, esophageal dilation performed. Last colonoscopy 2017 fair prep, transverse colon polyp, internal hemorrhoids, normal ileum; biopsy consistent with adenomatous polyp. Patient has known historyof gastroparesis and reports intermittent nausea. Pt denies: dysphagia, hematemesis, heartburn, abdominal pain, melena, hematochezia, vomiting, constipation, diarrhea, fever, chills, weight loss, fatigue, jaundice, itching, sore throat, sinus pain, eye pain, visual disturbances, palpitations, leg swelling, cough, shortness of breath, dysuria, hematuria, easy bruising, easy bleeding, dizziness, confusion. Past Medical History: Diagnosis Date ? Anesthesia Nausea and vomiting ? Asthma 05/03/2011 ? Bilateral carpal tunnel syndrome 08/29/2016 ? Chronic kidney disease, stage 3 (HCC) 03/11/2018 ? Depression with anxiety 05/22/2017 ? Diabetic polyneuropathy associated with type 2 diabetes mellitus (HCC) ? Dyslipidemia 02/07/2009 ? Essential hypertension 01/24/2017 ? Gastritis ? Gastroesophageal reflux disease without esophagitis 01/24/2017 EGD 05/2016 showed old healed esophageal scar s/p distal esophagus submucosal nodule removal 06/2015,biopsy positive for granular cell tumor. repeat EGD 1 year. ? Granular cell tumor Esophageal, x2, s/p resection ? 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 Liver disease fatty liver from diabetes ? PEREZ (nonalcoholic steatohepatitis) 01/24/2017 ? EM on CPAP 01/24/2017 ? Post-menopausal 2007 ? Recurrent chest pain 08/24/2014 Negative thallium stress test 08/19/14 ? Right lateral epicondylitis 08/29/2016 ? Shingles ? Type 2 diabetes mellitus with diabetic polyneuropathy, with long-term current use of insulin(HCC) 07/05/2016 ? Vitamin D deficiency 05/13/2009 family history includes Arrythmia in her mother; Breast Cancer in her paternal grandmother; Cancer in her maternal aunt and paternal grandfather; Cervical Cancer in her maternal aunt; Diabetes in her father and mother; Genitourinary ( ) in her father; Heart Disease in her father and paternal grandfather; High Cholesterol in her mother; Hypertension in her father and mother; Other Diagnosed Disorder in her father; Respiratory in her father; Seizures in her father; Skin Cancer in her father and mother. Past Surgical History: Procedure Laterality Date ? BILAT TUBAL CRUSHING NEC Tubal ligation ? BOWEL DIAGNOST PROC NEC ? CARPAL TUNNEL RELEASE ? CATHETERIZATION HEART LEFT N/A 09/03/2014 Procedure: CATHETERIZATION HEART LEFT; Surgeon: Julio Moreno MD; Location: [facility] CCL ? CERVICAL CYST MARSUPIAL Pt states that she had two cysts removed from low abdomen area ? COLONOSCOPY DIAGNOSTIC ? EGD 01/09/12, 05/27/15 esophageal scar ? EGD N/A 07/06/2015 Procedure: ENDOSCOPY UPPER GI with EMR; Surgeon: Eric Luna Jr., MD; Location: [facility] MAIN OR ? EGD N/A 08/03/2015 Procedure: ENDOSCOPY UPPER GI; Surgeon: Eric Luna Jr., MD; Location : [facility] MAIN OR ? EGD N/A 03/12/2018 Procedure: ENDOSCOPY UPPER GI with TTS dilation; Surgeon: Shlomo Vega MD FAC; Location: [facility] GI OR ? EGD (SOSA / NON SOSA) ? EXPLORATORY LAPAROTOMY Abdominal cysts x 2. ? INCISIONAL HERNIA REPAIR ? AZ INCISE FINGER TENDON SHEATH Right 11/12/2018 Procedure: RELEASE TRIGGER FINGER; right thumb; Surgeon: Nicolasa Lemus MD; Location: [facility] ? AZ LIGATE FALLOPIAN TUBE ? AZ REMOVE TONSILS/ADENOIDS,<12 Y/O ? AZ REVISE MEDIAN N/CARPAL TUNNEL SURG Right 11/04/2017 Procedure: RELEASE CARPAL TUNNEL; Surgeon: Nicolasa Lemus MD; Location: [facility] OR ? AZ REVISE MEDIAN N/CARPAL TUNNEL SURG Left 11/18/2017 Procedure: RELEASE CARPAL TUNNEL; Surgeon: Nicolasa Lemus MD; Location: [facility] ? REPAIR OF HERNIA Social History Socioeconomic History ? Marital status: Spouse name: Not on file ? Number of children: Not on file ? Years of education: Not on file ? Highest education level: Not on file Occupational History ? Not on file Social Needs ? Financial resource strain: Not on file ? Food insecurity Worry: Not on file Inability: Not on file ? Transportation needs Medical: Not on file Non-medical: Not on file Tobacco Use ? Smoking status: Former Smoker Packs/day: 1.50 Years: 30.00 Pack years: 45.00 Types: Cigarettes Last attempt to quit: 11/19/2016 Years since quittin.4 ? Smokeless tobacco: Never Used ? Tobacco comment: 1.5 pack daily for 30 years, quit on 11/19/2016 Substance and Sexual Activity ? Alcohol use: No Alcohol/week: 0.0 standard drinks ? Drug use: No ? Sexual activity: Yes Partners: Male Lifestyle ? Physical activity Days per week: Not on file Minutes per session: Not on file ? Stress: Not on file Relationships ? Social connections Talks on phone: Not on file Gets together: Not on file Attends shinto service: Not on file Active member of club or organization: Not on file Attends meetings of clubs or organizations: Not on file Relationship status: Not on file ? Intimate partner violence Fear of current or ex partner: Not on file Emotionally abused: Not on file Physically abused: Not on file Forced sexual activity: Not on file Other Topics Concern ? Back Care Yes ? Bike Helmet No ? Blood Transfusions No ? Caffeine Concern No ? Exercise No ? Hobby Hazards No ? International Travel No ? Service No ? Occupational Exposure No ? Seat Belt No ? Self-Exams No ? Sleep Concern No ? Special Diet No ? Stress Concern No ? Weight Concern No Social History Narrative Crestor [rosuvastatin calcium] and Pcn [penicillins] Current Outpatient Medications Medication Sig ? albuterol HFA (VENTOLIN) 108 (90 Base) MCG/ACT Inhalation Aero Soln Take 2 Puffs by inhalation EVERY FOUR HOURS NEEDED (shortness of breath). ? buPROPion (WELLBUTRIN SR) 150 MG Oral TABLET SR 12 HR TAKE 1 TABLET BY MOUTH TWICE A DAY ? CLINDAMYCIN PHOSPHATE,TOPICAL, 1 % Apply externally Lotion 1 Appl by Topical route DAILY. Apply to scalp sores once daily until resolved ? cyclobenzaprine (FLEXERIL) 10 MG Oral Tab Take 1 Tab by mouth EVERY BEDTIME. ? Dexlansoprazole 30 MG Oral CAPSULE DELAYED RELEASE Take 30 mg by mouth DAILY. ? diclofenac (VOLTAREN) 75 MG Oral Tab EC Take 1 Tab by mouth TWICE DAILY. ? Dulaglutide (TRULICITY) 1.5 MG/0.5ML Subcutaneous Solution Pen-injector Inject 1.5 mg beneath the skin EVERY 7 DAYS. ? duloxetine (CYMBALTA) 60 MG Oral CAPSULE ENTERIC COATED PARTICLES TAKE 1 CAPSULE BY MOUTH DAILY ? gabapentin (NEURONTIN) 300 MG Oral Cap TAKE 1 CAPSULE BY MOUTH EVERY NIGHT AT BEDTIME . TAKE WITH 600 MG TABLET TO EQUAL 900MG AT BEDTIME. ? Gabapentin 600 MG Oral Tab TAKE 1 TABLET BY MOUTH 3 TIMES DAILY ? JARDIANCE 25 MG Oral Tab TAKE 1 TABLET BY MOUTH DAILY . EQUIVALENT TO EMPAGLIFLOZIN ? ketoconazole (NIZORAL) 2 % Apply externally Shampoo 120 Appl by Topical route THREE TIMES PER WEEK. Use as a shampoo, leave on for 5 min then wash off ? LANTUS SOLOSTAR 100 UNIT/ML Subcutaneous Solution Pen-injector INJECT SUBCUTANEOUSLY 65 UNITS TWO TIMES DAILY ? losartan (COZAAR) 25 MG Oral Tab TAKE 1 TABLET BY MOUTH DAILY ? metFORMIN (GLUCOPHAGE) 850 MG Oral Tab TAKE 1 TABLET BY MOUTH TWICE A DAY ? Dewey & Syringes Does not apply Misc 1 Each by Does not apply route TWICE DAILY. BD PEN UF SHORT 31G 08/07 ? Omeprazole 40 MG Oral CAPSULE DELAYED RELEASE Take 1 Cap by mouth DAILY. ? triamcinolone (KENALOG,ARISTOCORT) 0.1 % Apply externally Cream APPLY DAILY TO OUTSIDE OF EARS PRN No current facility-administered medications for this visit. ROS: A comprehensive 10 point ROS was completed and negative except as mentioned in HPI. OBJECTIVE: BP 120/72 (BP Location: Right arm, Patient Position: Sitting) | Pulse 80 | Ht 5' 4" (1.626 m) | Wt 212 lb 3 oz (96.2 kg) | LMP 11/16/2008 | BMI 36.42 kg/m Physical Examination GENERAL: alert, oriented, no acute distress. SKIN: normal, no rashes or abnormalities noted. Skin acyanotic, warm, dry. EYES: PERRL, no scleral icterus LUNGS: respiratory effort unlabored. HEART: regular rhythm. ABDOMEN: Soft, non-tender, BS x 4. No guarding/rigity/rebound. Lab Results Component Value Date WBC 5.17 04/01/2019 HGB 10.2 (L) 04/01/2019 HCT 34.8 04/01/2019 PLAT 254 04/01/2019 Lab Results Component Value Date NA 141 04/01/2019 K 4.0 04/01/2019 CL 107 04/01/2019 CO2 19 (L) 04/01/2019 GLUCOSE 249 (H) 04/01/2019 BUN 13 04/01/2019 CREATININE 0.7 04/01/2019 CALCIUM 9.4 04/01/2019 TP 7.7 04/01/2019 ALBUMIN 4.3 04/01/2019 AST 76 (H) 04/01/2019 ALT 62 (H) 04/01/2019 ALK 139 04/01/2019 TBILI 0.4 04/01/2019 EGFR >60 04/01/2019 Impression/Plan ICD-9-CM ICD-10-CM 1. Iron deficiency anemia, unspecified iron deficiency anemia type 280.9 D50.9 EGD (SOSA / NON SOSA) COLONOSCOPY DIAGNOSTIC 2. Nausea 787.02 R11.0 1. Iron deficiency anemia? hemoglobin decreased 10.2 on recent labs. FIT negative no obviousGI blood loss. EGD/colonoscopy to evaluate for possible GIB Discussed if hemoglobin does not improve with iron supplementation may consider capsule study Continue iron supplementation per bariatric provider 2. Nausea with known history of gastroparesis Small, frequent meals Follow low bulk, low fiber diet Return to Clinic yearly She was encouraged to call if questions or problems arise. She tells me she will be compliant. AUTHOR:Lottie Martinez NP Section of Gastroenterology 05/06/2019 16:37 documented in this encounter Plan of Treatment Date Type Specialty Care Team Description 05/19/2019 Office Visit Internal Medicine Caty Murphy MD [address] [place] [address] [phone] 05/20/2019 Ocular Visit Optometry Giovany Amaral L, OD [address] [facility] [place] [address] 05/21/2019 GI Procedure Gastroenterology Derek George MD [address] [place] [address] 07/15/2019 Office Visit Nephrology Tiffani Alonzo MD [address] [place] [address] 12/23/2019 Office Visit Dermatology Stella Espinoza MD [address] [facility] [place] [address] Name Type Priority Associated Diagnoses Order Schedule EGD (SOSA / NON Referral Routine Iron deficiency anemia, Expected: SOSA) unspecified iron 05/06/2019, Expires: deficiency anemia type 05/06/2020 COLONOSCOPY DIAGNOSTIC Referral Routine Iron deficiency anemia, Expected: unspecified iron 05/06/2019, Expires: deficiency anemia type 05/06/2020 Health Maintenance Due Date Last Done Comments FOOT EXAM 08/05/2015 08/04/2014, 08/04/2014, 08/04/2014, Additional history exists PAP SMEAR 09/04/2018 09/05/2015, 09/05/2015, 08/10/2014, Additional history exists EGD (ESOPHAGODUODENOSCOPY) 09/10/2018 03/12/2018, 03/12/2018, 06/18/2017, Additional history exists HEMOGLOBIN A1C 07/01/2019 04/01/2019, [...] 12/20/2011 Tdap) PNEUMOCOCCAL 0-64 YRS Completed 03/06/2016 INFLUENZA VACCINE Completed 04/08/2019, 01/01/2018, 01/25/2016, Additional history exists HEPATITIS A IMMUNIZATION Aged Out No longer [...] Type Problems Progress Blood Pressure Blood Pressure 120/72 No Josue, < 140/90 (05/06/2019 Shanae, 3:57 PM EST) [place] Note: Hypertension Care Plan Based [...] Educational Resources. record my blood pressure results. [employer] is safe and secure way [...] Educational Resources: National Heart, Lung, & Blood [place] http://nhlbi.nih.gov/hbp/index.html The DASH Diet Eating Plan http://www.nhlbi.nih.gov/health/health-topics/ topics/dash/ Academy of Nutrition & DIetetics http://eatright.org National Smoking Cessation Site http://smokefree.gov Blood Pressure Blood Pressure HTN (hypertension), 120/72 No [place], < 140/90 benign (05/06/2019 3:57 [place] Jolly PM EST) Note: Hypertension Care Plan Based on the [...] Educational Resources. record my blood pressure results. [employer] is safe and secure way for you [...] Educational Resources: National Heart, Lung, & Blood [place] http://nhlbi.nih.gov/hbp/index.html The DASH Diet Eating Plan http://www.nhlbi.nih.gov/health/health-topics/ topics/dash/ Academy of Nutrition & DIetetics http://eatright.org National Smoking Cessation Site http://smokefree.gov Blood Pressure < Blood Pressure 120/72 (05/06/2019 3:57 Shanae Cotton CRNP 140/90 PM EST) Note: This is an individualized treatment [...] screen (PHQ-9) total score < 5 Depression Eileen Orta , RN Note: This is an individualized treatment [...] Results Lab Results Value Date/Time GLYCO 8.9 12/04/2013726 GLYCO 7.5 04/28/2013712 The patient is:discussed the A1C goal with [...] my blood sugar results (including dextrose sticks). 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 [facility] is safe and secure way for [...] lower numbers are better. Work with your Dock Worker General Shanae Cotton CRNP Note: This is an individualized treatment (frequent ED use) goal for Shannan Irbynehanessa: Please work with your Dock Worker, who will assist you in meeting your [...] at meals and parties. High Risk Lifestyle No Shanae Salas CRNP Note: High Risk Patient Care Plan [...] group, individual, or telephone counseling Education Resources: [place] [employer]abetic Association http://diabetes.org Academy of Nutrition & Dietetics http://eatright.org National Smoking Cessation http://smokefree.gov AHRQ: Treating Tobacco Use & Dependence http://www.ahrq.gov/professionals/clinicians-providers/guidelines- recommendations/tobacco/index.html State Quitlines: [place]: 8-070-TIPR-NOW (483-344-3134) [place]: http://www.Staaff.Yibailin/ [facility] Smoke Free Community: http://www.portal.state.co.us/portal/server administrator.pt/community/smoke_free/[address]20 [facility] Tobacco Control Program: http://www.health.ms.gov/prevention/tobacco_control Hyperten Lifestyle HTN (hypertension), benign No Shanae [...] group, individual, or telephone counseling Education Resources: [place] [employer] Association http://diabetes.org Academy of Nutrition & Dietetics http://eatright.org National Smoking Cessation http://smokefree.gov AHRQ: Treating Tobacco Use & Dependence http://www.ahrq.gov/professionals/clinicians-providers/guidelines- recommendations/tobacco/index.html [facility] Quitlines: [place]: 9-190-IZRD-NOW ([phone]) [place]: http://www.51.com/ [facility] Smoke Free Community: http://www.portal.[facility].co./portal/server administrator.pt/community/smoke_free/[address] [facility] Tobacco Control Program: http://www.health.[place].gov/prevention/tobacco_control Hyperlipidemia Lifestyle Dyslipidemia No Shanae Salas CRNP [...] parties. Weight loss vs. 18 mo Lifestyle 1.81 (05/06/2019 3:57 PM Shanae Cotton CRNP max (lbs) >= 10 EST) Note: This is an individualized lifestyle goal for Shannan Ocampo: Your body mass index (BMI) is more than 30. You should lose weight. A reasonable starting goal is to lose 10 pounds. Displayed above is how many pounds you have lost thus far towards your 10 pound weight loss goal. Keep immunizations current Lifestyle Shanae Cotton CRNP Note: This is an individualized lifestyle goal for Shannan Ocampo: Please be sure to keep up-to-date on recommended immunizations. For example, this would include a yearly influenza vaccine. Immunization status can be seen by looking at the Health Maintenance sections of your [facility], Plan of Care, and any After Visit Summaries. Regular appointments with primary care provider Lifestyle Shanae Cotton CRNP (PCP) Note: This is an individualized lifestyle goal for Shannan Ocampo: Please schedule regular visits with your primary care provider (PCP). Care provided in your PCP's office can help reduce your need for additional trips to the Emergency Room. Keep a regular sleep schedule Eileen Kunz RN Note: This is an individualized lifestyle goal for Shannan Ocampo: Please maintain a regular sleep schedule. This [...] filedocumented in this encounter Visit Diagnoses Diagnosis Iron deficiency anemia, unspecified iron deficiency anemia type Nausea Nausea alone documented in this encounter Insurance Payer Benefit Plan / Subscriber ID Effective Dates Phone Address Type Group [employer]CIAL [employer] [id number] 2012-Present [employer] Guarantor Name Account Type Relation to Date of Phone Billing Patient Address Shannan Ocampo Personal/Family [phone] (Home) [address] [place], [place] (Work) [id number] documented as of this encounter Advance Directives [...]
[2019-05-07 10:33] LABS: Influenza A Molecular Negative (Negative); Influenza B Molecular Negative (Negative)
[2019-05-07 10:38] LABS: Troponin I 0.01 ng/mL (<0.03)
[2019-05-07 10:40] LABS: Albumin 4.3 g/dL (3.2-5.2); Albumin/Globulin Ratio 1.4 (1-3); BUN/Creatinine Ratio 11.8 (8-20); C Reactive Protein 5.68 mg/L (<8.01); Calcium 9.2 mg/dL (8.6-10.3); EGFR Non-African American 70.2 (>60); Globulin 3.1 g/dL (2-4); Potassium 4.1 mmol/L (3.5-5.0); Total Bilirubin 0.3 mg/dL (0.2-1.0); Total Protein 7.4 g/dL (6.4-8.9)
[2019-05-07 10:59] LABS: ABS Basophils 0.1 10^3/ul (0-0.2); ABS Eosinophils 0.2 10^3/ul (0-0.6); ABS Lymphocytes 2.2 10^3/ul (1.0-4.8); ABS Monocytes 0.5 10^3/ul (0-0.8); ABS Neutrophils 3.5 10^3/ul (1.5-7.7); Eosinophil % 2.4 %; Lymphocyte % 34.6 %
[2019-05-07] MEDS ORDERED: Dextrose 50% VIAL 50 ml IV ONE (14:47)
[2019-05-07 15:00] LABS: Urine Appearance Clear; Urine Bilirubin Negative (Negative); Urine Blood Negative (Negative); Urine Color Yellow; Urine Glucose 3+(>=500 mg/dL) (Negative); Urine Ketones Negative (Negative); Urine Nitrite Negative (Negative); Urine Protein Negative (Negative); Urine Specific Gravity 1.031 (1.010-1.030); Urine Urobilinogen Negative (Negative)
[2019-05-07] MEDS ORDERED: Dextrose 50% Syringe 50 ML* 25 GM/50 ML SYRINGE IV PUSH ONE (15:00)
[2019-05-07] MEDS ORDERED: Iodixanol* (CONTRAST) 320 MG/ML 100 ML SDV IV ONE (15:47)
[2019-05-07 17:03] VITALS: BP 115/65
== END 2019-05-07 17:03 | disposition home or self-care (01) ==
LOC: ED 09:40
DX: R07.9 Chest pain, unspecified (principal); M54.9 Dorsalgia, unspecified; R53.83 Other fatigue; E11.9 Type 2 diabetes mellitus without complications; I10 Essential (primary) hypertension; R78.5 Finding of other psychotropic drug in blood; K21.9 Gastro-esophageal reflux disease without esophagitis; D64.9 Anemia, unspecified; E78.00 Pure hypercholesterolemia, unspecified; R06.02 Shortness of breath; Z87.891 Personal history of nicotine dependence; Z79.899 Other long term (current) drug therapy
CPT/HCPCS: 36415; 71046; 71275; 76705; 80053; 81003; 84484; 85025; 85379; 85610; 86140; 93005; 99283